=== PATIENT | female | born 1960 | race Caucasian/White ===

== ENCOUNTER → 2017-06-05 | Outpatient (CLI) | payer OTHER ==
--- NOTE | 2017-06-06 13:28 | PE ---
EXAMINATION TYPE: PET CT fusion skull to thigh DATE OF EXAM: 06/05/2017 COMPARISON: Chest x-ray 10/14/2016 Prior PET/CT: None at this location HISTORY: Solitary pulmonary nodule TECHNIQUE: Following the intravenous administration of 14.79 mCi of F-18 FDG, whole body images are performed from the skull base to the midthigh. Images are reviewed on the computer in the coronal, a xial, and sagittal planes. Reconstructed rotating images are created on independent workstation and reviewed on the computer. A localization and attenuation correction CT is performed in conjunction with the PET scan. DLP: 473.70 mGycm SCAN: Initial Blood glucose: 97 mg/dL Average Mediastinum SUV: 1.58 Average Liver SUV: 2.16 FINDINGS: NECK: No abnormal uptake THORAX: There is a focus of radiotracer accumulation at the right apex with an SUV of 6.2 compatible with a neoplastic process. There is a focus of radiotracer accumulation in the superior right mediast inum with an SUV value of 4.4 suspicious for a right peribronchial metastatic lymph node. ABDOMEN: No abnormal uptake PELVIS: No abnormal uptake. Punctate area of radiotracer in the right hemipelvis is felt to be relate d to renal excretion and ureter. OSSEOUS STRUCTURES: No abnormal uptake. LOCALIZATION CT: Apical mass on mediastinal windows is estimated to measure 2.9 x 3.8 cm. Series 3 im age 56. Shotty lymphadenopathy is within the superior mediastinum. There is an enlarged lymph node pr etracheal space corresponding to the area of abnormal uptake on PET scan measuring 1.2 cm in transver se dimension. The ascending thoracic aorta at the level of main pulmonary artery is 3.6 cm. The main pulmonary artery the bifurcation is 3.1 cm. There is thickening of the left adrenal gland 1.5 cm. Thi s has an SUV value 1.56 which is nonspecific. COMPARISON: Finding corresponds to the finding on the chest x-ray of 10/14/2016. IMPRESSION: 1. Focal uptake within the right apex compatible with neoplasm. 2. Focal uptake within an enlarged mediastinal lymph node suspicious for metastatic disease. 3. Intermediate uptake within a prominent left adrenal gland. Metastasis is not excluded. Other etiol ogies remain within the differential.
== END | disposition home or self-care (01) ==
LOC: RADPETMAIN 09:49
PROVIDERS: ATTEND Internal Medicine Critical Care Medicine
DX: R59.0 Localized enlarged lymph nodes (principal)
CPT/HCPCS: 78815; A9552

== ENCOUNTER 2017-06-14 09:51 | Day surgery (SDC) | payer OTHER ==
[2017-06-11 10:12] VITALS: BMI 33.6
[~2017-06-14 09:51] MED LIST: ALBUTEROL NEB (CONC) 2.5 MG/0.5 ML INHALATION ONE; LACTATED RINGERS 1,000 ML IV ONE; LIDOCAINE 2% (PF) 20 MG/ML 2 ML AMP INHALATION ONE; Pre Op ABX Message 1 EACH MISC MISCELLANE ONE
[2017-06-14 10:28] VITALS: RESP 18; TEMP 97.7
[2017-06-14] MEDS ORDERED: LIDOCAINE 1% 20 ML VIAL (10MG/ML) FOR IV START INTRADERMA ONE (10:30)
[2017-06-14] MEDS ORDERED: HYDROCORTISONE SUCCINATE 100 MG/2 ML VIAL IV ONE (10:49)
[2017-06-14 10:51] LABS: Glucose,Whole Blood 106 mg/dL (75-99)
[2017-06-14] MEDS ORDERED: PROPOFOL 10 MG/ML 20 ML VIAL IV ONE (12:31)
[2017-06-14] MEDS ORDERED: LIDOCAINE 1% INJ 10MG/ML (20 ML MDV) ONE (12:31)
[2017-06-14] MEDS ORDERED: MIDAZOLAM 2 MG/2 ML VIAL ONE (12:31)
[2017-06-14] MEDS ORDERED: GLYCOPYRROLATE 0.2 MG/ML 2 ML VIAL ONE (12:31)
--- NOTE | 2017-06-14 13:06 | P.PCN ---
Date of Procedure: 06/14/17 Preoperative Diagnosis: rigjt upper lone mass, right paratracheal adenopathy Postoperative Diagnosis: same Procedure(s) Performed: Flexible bronchoscopy, transbronchial needle aspirate of a right paratracheal lymph node, station 4R Anesthesia: MAC Surgeon: Alley Baldwin Estimated Blood Loss (ml): 0 Pathology: other Condition: stable Disposition: same day Operative Findings: This is a flexible bronchoscopy that was done under conscious sedation in the bronchoscopy suite. The procedure was done under conscious sedation. After achieving adequate sedation, the flexible bronchoscope was inserted to the right nostril was advanced upper airway. Examination of the posterior oropharynx, larynx, epiglottis, arytenoids and the vocal cords were within normal limits and there was no abnormalities noted. A total of 2 mL of 1% lidocaine was applied to the vocal cords and following that the bronchoscope was advanced into the upper trachea and examination of the tracheal bronchial tree was done. The airways were visualized included the trachea, bilateral mainstem bronchi, right upper lobe bronchus, bronchus intermedius, right middle lobe bronchus, right lower lobe bronchus, left upper lobe bronchus and left lower lobe bronchus. All of these airways were patent and within normal limits. No endobronchial lesions or abnormalities noted. Bronchoscope was moved to the distal trachea and transbronchial needle aspirate of the right paratracheal lymph node was done, station 4 hours. I used a 19-gauge cytology needle and a 21-gauge histology needle. The adequacy of the samples will confirmed by pathology the bedside. A total of 6 passes were done. Addendum of the procedure, there was no bleeding and the patient tolerated the procedure well without any major difficulties. The bronchoscope was removed and the patient was transferred recovery in stable condition.
[2017-06-14 13:34] VITALS: BP 97/59; PULSE 87
== END 2017-06-14 13:57 | disposition home or self-care (01) ==
LOC: ORWHC2ENDO 09:51
PROVIDERS: ATTEND Internal Medicine Critical Care Medicine
DX: C34.91 Malignant neoplasm of unspecified part of right bronchus or lung (principal); J44.9 Chronic obstructive pulmonary disease, unspecified; K21.9 Gastro-esophageal reflux disease without esophagitis; E03.9 Hypothyroidism, unspecified; Z87.891 Personal history of nicotine dependence; Z79.51 Long term (current) use of inhaled steroids; Z79.899 Other long term (current) drug therapy
CPT/HCPCS: 94640; 88305; 88173; 88342; 88341; 31629; J2250; J1720; J2001 ×2; J2704

== ENCOUNTER → 2017-06-25 | Outpatient (CLI) | payer OTHER ==
--- NOTE | 2017-06-25 08:07 | MR ---
EXAMINATION TYPE: MR brain wo/w con DATE OF EXAM: 06/25/2017 COMPARISON: NONE HISTORY: Lung CA newly diagnosed, initial staging study TECHNIQUE: Multiplanar, multisequence images of the brain and brainstem is performed without and with IV contras t, utilizing 9.5 mL intravenous Gadavist . FINDINGS: Diffusion weighted images demonstrate no evidence of a recent infarct or other diffusion ab normality. There is no worrisome extra-axial fluid collection. The ventricular system and cisternal spaces are normal in size and appearance. The brain volume is age appropriate. There are few scatte red foci of T2 hyperintensity seen throughout the white matter bilaterally. Approximately 15 scattere d lesions are seen. There is additional right frontal cortical C-shaped T2 hyperintense area axial im age 35 noted. Midline structures demonstrate normal morphology. The craniocervical junction appears within normal limits. Post contrast images demonstrate no abnormal enhancement. The dural venous sinuses appear pa tent. The visualized sinuses are clear and the globes are intact. IMPRESSION: No suspicious enhancing intraparenchymal mass is identified to suggest metastatic disease to the brain. Mild nonspecific white matter changes are most likely on basis of product of chronic s mall vessel ischemic change in patient of this age.
== END ==
LOC: RADMRIMAIN 07:02
PROVIDERS: ATTEND Radiology Radiation Oncology
DX: C34.11 Malignant neoplasm of upper lobe, right bronchus or lung (principal)
CPT/HCPCS: 70553; A9581

== ENCOUNTER 2017-07-06 06:33 | Day surgery (SDC) | payer OTHER ==
[2017-07-05 10:15] VITALS: BMI 33.3
[~2017-07-06 06:33] MED LIST changes: -ALBUTEROL NEB (CONC) 2.5 MG/0.5 ML INHALATION ONE; +DEXAMETHASONE SOD PHOSPHATE 10 MG/ML 1 ML VIAL IV ONE; -LACTATED RINGERS 1,000 ML IV ONE; +LACTATED RINGERS 1,000 ML IV SCH; -LIDOCAINE 2% (PF) 20 MG/ML 2 ML AMP INHALATION ONE; +MIDAZOLAM 2 MG/2 ML VIAL IV PRN; +ONDANSETRON 4 MG/2 ML VIAL IVP ONE; +SCOPOLAMINE 1.5MG/72HR PATCH TRANSDERM ONE
[2017-07-06] MEDS ORDERED: LIDOCAINE 1% 20 ML VIAL (10MG/ML) FOR IV START INTRADERMA ONE (07:26)
[2017-07-06] MEDS ORDERED: SODIUM CHLORIDE 0.9% 50 ML with ceFAZolin 2,000 MG IV ONE ×2 (08:06)
[2017-07-06] MEDS ORDERED: MIDAZOLAM 2 MG/2 ML VIAL ONE (08:06)
[2017-07-06] MEDS ORDERED: fentaNYL (PF) 50 MCG/ML 2 ML AMP ONE (08:06)
[2017-07-06] MEDS ORDERED: LIDOCAINE 1% INJ 10MG/ML (20 ML MDV) ONE (08:06)
[2017-07-06] MEDS ORDERED: ceFAZolin 1,000 MG VIAL ONE (08:06)
[2017-07-06] MEDS ORDERED: KETAMINE 10 MG/ML 20 ML VIAL ONE (08:06)
[2017-07-06] MEDS ORDERED: PROPOFOL 10 MG/ML 20 ML VIAL IV ONE (08:06)
[2017-07-06] MEDS ORDERED: LIDOCAINE (PF) 10 MG/ML 2 ML VIAL SQ ONE (08:24)
[2017-07-06] MEDS ORDERED: LIDOCAINE 1% INJ 10MG/ML (20 ML MDV) SQ ONE (08:24)
[2017-07-06] MEDS ORDERED: HEPARIN SODIUM,PORCINE 100 UNIT/ML 5 ML VIAL IV ONE (08:26)
--- NOTE | 2017-07-06 09:19 | FL ---
EXAMINATION TYPE: FL guidance operating room DATE OF EXAM: 07/06/2017 HISTORY: Flouroscopy time 18 seconds of fluoroscopy provided. IMPRESSION: 1. Fluoroscopy time.
[2017-07-06 09:24] VITALS: TEMP 96.8
[2017-07-06] MEDS: fentaNYL (PF) 50 MCG/ML 2 ML AMP IV PRN ×2 (09:31→09:45)
--- NOTE | 2017-07-06 09:31 | XR ---
EXAMINATION TYPE: XR chest 1V portable DATE OF EXAM: 07/06/2017 COMPARISON: 10/14/2016 HISTORY: Port placement TECHNIQUE: Single frontal view of the chest is obtained. FINDINGS: There is a spiculated mass within the right upper lobe measuring 3.3 cm increased in size from the previous exam. Left-sided port is seen with the tip overlying the SVC and no sizable pneumot horax. No consolidation or pleural effusion. Heart size stable and within normal limits. IMPRESSION: 1. Mediport is seen with the tip overlying the SVC and no sizable pneumothorax. 2. Right apical lung mass measures 3.3 cm and is increased in size from previous exam.
--- NOTE | 2017-07-06 09:34 | P.OP ---
Date of Procedure: 07/06/17 Preoperative Diagnosis: Lung cancer Postoperative Diagnosis: Same Procedure(s) Performed: Insertion of left IJ Port-A-Cath under fluoroscopy with ultrasound guidance Anesthesia: MAC Surgeon: Curry Chung Condition: stable Disposition: PACU Indications for Procedure: This 56-year-old female who has metastatic lung cancer which she requires chemotherapy for. Risks benefits and alternatives to Mediport placement including risks of bleeding infection damage surrounding tissue need further operation pneumothorax and need for chest tube were all discussed with patient stated she understood agreed and consented for consent was obtained Description of Procedure: Patient was brought Into the operative suite remained in the supine position underwent sedation per department of anesthesia timeout was performed correct patient correct procedure correct site was verified she is prepped and draped in the usual sterile fashion local anesthetic was used to anesthetize the skin and subcuticular tissues over the left anterior chest and the cannulating needle was used to cannulate the left subclavian vein. The wire was then unable to be passed completely through the needle as a needle was made of a material that was easily bent underneath the clavicle. No other needle is available. Ultrasound was then obtained and used to visualize the internal jugular vein with the patient in Trendelenburg. The cannulating needle was then used to cannulate the left internal jugular vein. The wire was easily passed and under fluoroscopy noted to be in the SVC. The needle was removed leaving the wire in place. A 15 blade scalpel was then used to make a 4 cm incision in the left anterior chest this was carried down to the prepectoral fascia. The catheter was tunneled between this incision and the neck incision which was made at the insertion of the wire. The sheath and dilator were then placed over the wire under direct fluoroscopic guidance the wire and dilator were removed leaving the sheath in place the catheter was placed through the sheath under fluoroscopic guidance until noted in the SVC atrial junction. The sheath was then removed leaving the catheter in place. The port was then attached to the catheter in the pocket that was previously formed and sutured in place using 2-0 Prolene sutures. The port was flushed with ease and hep- locked. Final image was taken the skin was closed with 30 subdermal sutures followed by 4-0 running subcuticular suture sterile dressing was applied patient tolerated procedure well no apparent complications chest x-ray ordered for packing Plan - Discharge Summary New Discharge Prescriptions: New HYDROcodone/APAP 5-325MG [[place] 5-325] 1 tab PO Q6HR PRN #15 tab PRN Reason: Pain No Action Cholecalciferol [Vitamin D3] 2,000 unit PO DAILY Levothyroxine Sodium [Levoxyl] 150 mcg PO QAM Furosemide [Lasix] 20 mg PO DAILY Budesonide/Formoterol Fumarate [Symbicort 160-4.5 Mcg Inhaler] 2 puff INHALATION BID Albuterol Sulfate [Proair Hfa] 1 - 2 puff INHALATION Q6HR PRN PRN Reason: COPD Umeclidinium Gustavus [Incruse Ellipta] 62.5 mcg INHALATION QAM Theophylline Anhydrous [Theophylline] 400 mg PO BID Omeprazole 20 mg PO TID-W/MEALS I-Hlncd-Ywmjyzrk 600 mg PO DAILY Ipratropium-Albuterol Nebulize [Duoneb 0.5 mg-3 mg/3 ml Soln] 3 ml INHALATION DAILY PRN PRN Reason: Shortness Of Breath Elderberry Fruit and Flower [Black Elderberry 575 mg Cap] 1 each PO DAILY Cyanocobalamin (Vitamin B-12) [Vitamin B-12] 3,000 mcg PO DAILY Cefuroxime [Ceftin] 500 mg PO BID Black Cohosh 40 mg PO DAILY Nystatin 100,000 unit PO BID Discharge Medication List Albuterol Sulfate [Proair Hfa] 1 - 2 puff INHALATION Q6HR PRN 06/11/17 [History] Budesonide/Formoterol Fumarate [Symbicort 160-4.5 Mcg Inhaler] 2 puff INHALATION BID 06/11/17 [History] Cholecalciferol [Vitamin D3] 2,000 unit PO DAILY 06/11/17 [History] Cyanocobalamin (Vitamin B-12) [Vitamin B-12] 3,000 mcg PO DAILY 06/11/17 [ History] Elderberry Fruit and Flower [Black Elderberry 575 mg Cap] 1 each PO DAILY [History] Furosemide [Lasix] 20 mg PO DAILY 06/11/17 [History] Ipratropium-Albuterol Nebulize [Duoneb 0.5 mg-3 mg/3 ml Soln] 3 ml INHALATION DAILY PRN 06/11/17 [History] Levothyroxine Sodium [Levoxyl] 150 mcg PO QAM 06/11/17 [History] M-Tzgws-Eyvfqnxh 600 mg PO DAILY 06/11/17 [History] Omeprazole 20 mg PO TID-W/MEALS 06/11/17 [History] Theophylline Anhydrous [Theophylline] 400 mg PO BID 06/11/17 [History] Umeclidinium Gustavus [Incruse Ellipta] 62.5 mcg INHALATION QAM 06/11/17 [History ] Black Cohosh 40 mg PO DAILY 07/05/17 [History] Cefuroxime [Ceftin] 500 mg PO BID 07/05/17 [History] Nystatin 100,000 unit PO BID 07/05/17 [History] HYDROcodone/APAP 5-325MG [[place] 5-325] 1 tab PO Q6HR PRN #15 tab 07/06/17 [Rx] Follow up Appointment(s)/Referral(s): Curry Chung DO [Doctor of Osteopathic Medicine] - 1 Week Activity/Diet/Wound Care/Special Instructions: Dressing can come off tomorrow, shower tomorrow, leave steri strips on Discharge Disposition: HOME SELF-CARE
[2017-07-06 09:47] VITALS: RESP 16
[2017-07-06] MEDS ORDERED: HYDROcodone/APAP 5-325MG 1 EACH TAB PO ONE (10:18)
[2017-07-06 11:09] VITALS: BP 109/73; PULSE 80
== END 2017-07-06 11:35 | disposition home or self-care (01) ==
LOC: OR 06:33
PROVIDERS: ATTEND Student in an Organized Health Care Education/Training Program
DX: C34.90 Malignant neoplasm of unspecified part of unspecified bronchus or lung (principal); J44.9 Chronic obstructive pulmonary disease, unspecified; E07.9 Disorder of thyroid, unspecified; K21.9 Gastro-esophageal reflux disease without esophagitis; Z79.51 Long term (current) use of inhaled steroids; Z79.899 Other long term (current) drug therapy; Z87.891 Personal history of nicotine dependence
CPT/HCPCS: 36561; 71045; C1788; J2250; J1642; J1100; J2405; J0690 ×2; J2001; J3010; J2704

== ENCOUNTER → 2017-08-28 | Outpatient (CLI) | payer OTHER ==
--- NOTE | 2017-08-30 08:46 | PE ---
EXAMINATION TYPE: PET CT fusion skull to thigh DATE OF EXAM: 08/28/2017 COMPARISON: 06/05/2017 HISTORY: Right apical non-small cell stage III lung cancer. Progress exam. Subsequent treatment strat egy. Current chemotherapy and radiation. TECHNIQUE: Following the intravenous administration of 13.84 mCi of F-18 FDG, whole body images are performed from the skull base to the midthigh. Images are reviewed on the computer in the coronal, a xial, and sagittal planes. Reconstructed rotating images are created on independent workstation and reviewed on the computer. A localization and attenuation correction CT is performed in conjunction with the PET scan. SCAN: Second at this institution FINDINGS: Mediastinal background: 2.31. Abdominal background: 2.88. SKULL BASE AND NECK: No suspicious hypermetabolic uptake. CHEST, MEDIASTINUM, AND HILAR REGION: The right apical pulmonary nodule measuring 2.1 x 2.7 cm is aga in hypermetabolic with a maximum SUV of 4.18. This is decreased in comparison to the prior of 6.2. Th is is also decreased in size as the previous measurements are 2.7 x 2.9 cm on the PET/CT dated 06/06/19 18. There is associated pleural thickening posterior medially and linear extension to the pleural claribel faces circumferentially. Findings are superimposed upon moderate centrilobular pulmonary emphysema. There is a right paratracheal lymph node seen on series 3 image 78 that measures 1.0 cm in short axis , upper limits of normal, and demonstrates a maximum SUV of 2.53, just above mediastinal background. This appears to have decreased in hypermetabolic uptake in comparison to the prior (maximum SUV of 4. 4). ABDOMEN AND PELVIS: The left adrenal gland is diffusely thickened but maintains an adreniform shape. There is no hypermetabolic activity with a maximum SUV of 2.2, below abdominal background. This is fa vored to represent benign adrenal gland hyperplasia rather than metastasis and is similar in morpholo gy to the prior exam. OSSEOUS STRUCTURES: No suspicious hypermetabolic uptake. OTHER CT: There is a solitary 6 mm left hepatic lobe cyst. The liver is diffusely hypoattenuated comp atible with mild hepatic steatosis. Left-sided Mediport is seen terminating in the cavoatrial junctio n. Ascending thoracic aorta and main pulmonary artery are nonenlarged. Glenohumeral arthropathy is se en, right greater than left. Mild to moderate multilevel degenerative changes of the spine are presen t. No suspicious osseous lesion is seen. Colonic diverticulosis without evidence of diverticulitis is noted. There is diastases recti. 2 small to accurately characterize bilateral renal lesions are seen . Probable left renal sinus cysts are present. No gross evidence of adenopathy in the abdomen or pelv is. Very small hiatal hernia is noted. Right adrenal gland is unremarkable. Left as described above. Unenhanced spleen and pancreas are unremarkable in morphology. No additional pulmonary masses are marychuy picious nodules are seen on today's examination. IMPRESSION: 1. Response to treatment. Decrease in radiotracer uptake of the primary right apical pulmonary nodule of greater than 25%. Additionally there is decrease in size of the right apical mass and decrease in uptake of the right paratracheal mediastinal presumably solitary metastatic lymph node. 2. No new additional evidence of infradiaphragmatic metastasis or suspicious osseous lesions. 3. Stable morphology of the nonhypermetabolic left adrenal gland favoring benign adrenal gland hyperp lasia. Continued surveillance is recommended.
== END | disposition home or self-care (01) ==
LOC: RADPETMAIN 09:41
PROVIDERS: ATTEND Internal Medicine Hematology & Oncology
DX: C34.11 Malignant neoplasm of upper lobe, right bronchus or lung (principal); R91.1 Solitary pulmonary nodule; C77.1 Secondary and unspecified malignant neoplasm of intrathoracic lymph nodes
CPT/HCPCS: 78815; A9552

== ENCOUNTER → 2017-09-13 | Outpatient (CLI) | payer OTHER ==
[2017-09-13 13:48] LABS: Appearance,Urine Clear (Clear); Bilirubin,Urine Negative (Negative); Blood,Urine Trace (Negative); Color,Urine Yellow; Glucose,Urine (UA) Negative (Negative); Ketones,Urine Negative (Negative); Leukocyte Esterase,Urine Negative (Negative); Mucus,Urine Moderate /hpf; Nitrite,Urine Negative (Negative); PH, Urine 6.5 (5.0-8.0); Protein,Urine Trace (Negative); RBC,Urine 14 /hpf (0-5); Specific Gravity,Urine 1.024 (1.001-1.035); Squamous Epithelial Cell,Urine 1 /hpf (0-4); Urobilinogen,Urine <2.0 mg/dL (<2.0); WBC,Urine 1 /hpf (0-5)
[2017-09-13 14:32] LABS: Anion Gap 9 mmol/L; Blood Urea Nitrogen 12 mg/dL (7-17); Carbon Dioxide 29 mmol/L (22-30); Chloride 106 mmol/L (98-107); Potassium 5.4 mmol/L (3.5-5.1); Sodium 144 mmol/L (137-145)
[2017-09-13 14:38] LABS: Anisocytosis Slight; Basophils % (A) 0 %; Eosinophils # (A) 0.1 k/uL (0-0.7); Eosinophils % (A) 2 %; HCT 36.2 % (34.0-46.0); Lymphocytes # (A) 0.5 k/uL (1.0-4.8); Lymphocytes % (A) 13 %; MCHC 33.1 g/dL (31.0-37.0); MCV 93.6 fL (80.0-100.0); Mean Platelet Volume 6.8; Monocytes # (A) 0.3 k/uL (0-1.0); Monocytes % (A) 8 %; Neutrophils # (A) 2.7 k/uL (1.3-7.7); Neutrophils % (A) 72 %; Platelet Count 304 k/uL (150-450); RBC 3.86 m/uL (3.80-5.40); RDW 17.9 % (11.5-15.5); WBC 3.7 k/uL (3.8-10.6)
== END | disposition home or self-care (01) ==
LOC: LABPAT 12:58
PROVIDERS: ATTEND Thoracic Surgery (Cardiothoracic Vascular Surgery)
DX: Z01.812 Encounter for preprocedural laboratory examination (principal); C34.12 Malignant neoplasm of upper lobe, left bronchus or lung
CPT/HCPCS: 36415; 80051; 81001; 82565; 84520; 85025

== ENCOUNTER 2017-09-16 05:51 | Inpatient (IN) | payer OTHER ==
[~2017-09-16 05:51] MED LIST changes: -LACTATED RINGERS 1,000 ML IV SCH; -Pre Op ABX Message 1 EACH MISC MISCELLANE ONE; -SCOPOLAMINE 1.5MG/72HR PATCH TRANSDERM ONE
[2017-09-16] MEDS ORDERED: LIDOCAINE 1% 20 ML VIAL (10MG/ML) FOR IV START INTRADERMA ONE ×2 (06:52)
[2017-09-16] MEDS: LACTATED RINGERS 1,000 ML IV SCH (06:52)
[2017-09-16 06:55] LABS: Potassium 3.8 mmol/L (3.5-5.1)
[2017-09-16] MEDS ORDERED: GLYCOPYRROLATE 0.2 MG/ML 2 ML VIAL ONE (07:43)
[2017-09-16] MEDS ORDERED: SUCCINYLCHOLINE CHLORIDE 100 MG/5 ML SYR IV ONE (07:43)
[2017-09-16] MEDS ORDERED: HYDROmorphone (PF) 1 MG/ML ONE (07:43)
[2017-09-16] MEDS ORDERED: MIDAZOLAM 2 MG/2 ML VIAL ONE (07:43)
[2017-09-16] MEDS ORDERED: LIDOCAINE 1% INJ 10MG/ML (20 ML MDV) ONE (07:43)
[2017-09-16] MEDS ORDERED: fentaNYL (PF) 50 MCG/ML 2 ML AMP ONE (07:43)
[2017-09-16] MEDS ORDERED: NEOSTIGMINE 1 MG/ML 10 ML VIAL ONE (07:43)
[2017-09-16] MEDS ORDERED: ROCURONIUM BROMIDE 10 MG/ML 10 ML VIAL IV ONE (07:43)
[2017-09-16] MEDS ORDERED: PROPOFOL 10 MG/ML 20 ML VIAL IV ONE (07:43)
[2017-09-16] MEDS: ceFAZolin IN SWFI 2 GM/20 ML SYRINGE IVP ONE ×2 (08:08→08:27)
[2017-09-16] MEDS ORDERED: BUPIVACAINE (PF) 0.5% 30 ML VIAL SQ ONE ×2 (08:27)
[2017-09-16] MEDS ORDERED: SODIUM CHLORIDE 0.9% 500 ML IV ONE (09:02)
[2017-09-16] MEDS ORDERED: LACTATED RINGERS 1,000 ML IV ONE (10:47)
[2017-09-16] MEDS ORDERED: IPRATROPIUM-ALBUTEROL 3 ML NEB IH PRN (11:05)
[2017-09-16] MEDS ORDERED: ONDANSETRON 4 MG/2 ML VIAL IVP PRN (11:05)
[2017-09-16] MEDS ORDERED: DEXTROSE 5%-0.45% NACL 1,000 ML IV SCH (11:05)
[2017-09-16] MEDS ORDERED: ACETAMINOPHEN TAB 325 MG TAB PO PRN ×2 (11:05)
--- NOTE | 2017-09-16 11:10 | P.OP ---
Date of Procedure: 09/16/17 Preoperative Diagnosis: Primary pulmonary neoplasm right upper lobe Postoperative Diagnosis: Same Procedure(s) Performed: Robotic-assisted thoracoscopic right upper lobectomy with mediastinal lymph node dissection Anesthesia: KEELY Surgeon: Romeo Eid Trimming Press Operator #1: Fabien Estevez Estimated Blood Loss (ml): 100 IV fluids (ml): 1,500 Urine output (ml): 500 Pathology: other (Right upper lobe for permanent section, lymph nodes from stations R4, level VII, RR 10, R 11) Condition: stable Disposition: PACU Indications for Procedure: 56-year-old female presented with enlarging mass in the right upper lobe near the apex. Initial PET scan was suggestive for right paratracheal adenopathy. EBUS confirmed the presence of stage IIIa disease. Patient underwent induction chemoradiation. She had a good response with loss of uptake in the mediastinal nodes and shrinkage of the primary tumor. She was recommended to undergo right upper lobectomy as part of try modality therapy. She went to [facility] for a second opinion and came back and decided to have the surgery here in [place]. Operative Findings: Pleural space was relatively free of adhesions. The tumor was adherent to the parietal pleura in the apex and there were some adhesions inferior to this to the mediastinal pleura. The fissures were nearly complete. There was some anthracotic adenopathy in the hilum. There were no significant paraesophageal nodes noted. No were mildly enlarged but otherwise relatively normal-appearing subcarinal nodes which were resected. Lymph nodes in the R4 and level X region were fairly adherent from previous radiation and were completely resected. Description of Procedure: The patient was brought to the operating room, placed supine on the operating table, anesthetized and intubated with a double-lumen endotracheal tube. Tube was positioned with fiberoptic bronchoscopy. No endobronchial lesions were noted. Tube was secured and the patient turned in left lateral decubitus position. She was appropriately positioned for robotic lobectomy. The right chest was sterilely prepped and draped. Initial incision was made in the anterior axillary line in the eighth interspace. An 8 port was placed here and we confirm placement in the pleural space. Single lung ventilation had been initiated shortly after draping. Patient tolerated single lung ventilation throughout the case. Once we were certain we were in the pleural space, CO2 insufflation was begun. 212 mm robotic ports were placed anterior and posterior to the initial port under thoracoscopic guidance. A second 8 mm port was placed in the fifth interspace posteriorly. The 15 mm working port was placed between the 2 most anterior ports just above the level of the diaphragm. The robot was docked. We began by taking down the adhesions at the apex robotically. These were fairly dense and vascular and it took some time but proceeded uneventfully. We then took down the remaining adhesions to the mediastinal pleura and then directed our attention to the inferior pulmonary ligament. This was taken down with bipolar cautery. Dissection was carried posteriorly and the paraesophageal lymph nodes were explored. There were some enlarged anthracotic subcarinal lymph nodes and these were resected. Dissection was then carried anteriorly onto the bronchus intermedius and up to the takeoff of the upper lobe bronchus. Lymph nodes in this bifurcation between the upper lobe bronchus and bronchus intermedius were resected. This gave us good visualization of the posterior segmental branch of the pulmonary artery leading to the posterior segment of the upper lobe. This was encircled and ligated and divided with a vascular robotic stapler. Further dissection of the lymph nodes was performed and some level XI lymph nodes were sent there was fairly dense adhesions between the pulmonary artery and the bronchus and we were not able to completely encircle the bronchus at this time. Attention was now directed anteriorly. Venous branches draining the middle and upper lobes were identified and we encircled the branches draining the upper lobe and ligated and divided them with a single firing of a robotic vascular stapler. Dissection was now carried onto the pulmonary artery and the truncus anteriormost this was identified. Adhesions in this region were a little bit Dadson did very careful and tedious dissection to completely safely encircled with truncus anterior doses. Once we had done this it was ligated and divided with a firing of a robotic vascular stapler. Remaining lymph nodes in the hilum were spent dissected en bloc with the specimen. We encircled the upper lobe bronchus and ligated and divided it with a single firing of a robotic thick stapler. The right upper lobe was now completely freed. Dissection was begun under the azygos vein and the paratracheal and level X hilar lymph nodes were dissected out and sent for permanent section. The lobectomy specimen was now placed in a bag and brought out through the working port site which was enlarged only slightly. Was sent for permanent section. All the lymph nodes were sent for permanent section. Chest was irrigated with warm water and no bleeding was noted. Total blood loss for the case was less than 100 mL. With some sterile water and the chest reinflated the lung and checked for air leaks. No significant air leaks were noted. Water was sucked out and a 28-Swedish chest tube was placed posterior apically through the most anterior incision. This was secured with an 0 Ethibond suture. Continue ventilation of the lung and close the incisions with layers of Vicryl suture. Rib blocks were performed at levels 5 through 10 with 5 mL of half percent Marcaine per level. Patient was turned supine and extubated and transferred to recovery in stable condition with her chest tube connected to suction and dry sterile dressings placed. Patient remained hemodynamically stable throughout there were no issues with her anesthetic management
[2017-09-16] MEDS: HYDROmorphone 0.5 MG/0.5 ML SYRINGE IVP PRN ×4 (11:13→11:36)
[2017-09-16] MEDS: KETOROLAC 30 MG/ML 1 ML VIAL IVP SCH ×2 (11:28→17:39)
[2017-09-16] MEDS ORDERED: SODIUM CHLORIDE 0.9% 1,000 ML IV ONE (11:42)
--- NOTE | 2017-09-16 11:43 | XR ---
EXAMINATION TYPE: XR chest 1V portable DATE OF EXAM: 09/16/2017 COMPARISON: 09/16/2018 HISTORY: Status post right lobectomy. TECHNIQUE: Single frontal view of the chest is obtained. FINDINGS: Right apical pleural thickening may be reactive. No pneumothorax is identified. Right thor acostomy tube has its distal aspect medially oriented along the right lung apex. Left-sided Mediport is in place. Right hemithorax volume loss is noted. Overall the lungs are clear without pleural effus ion or focal consolidation. Cardia mediastinal silhouette is within normal limits. Small amount of s ubcutaneous emphysema seen along the right lateral chest wall. IMPRESSION: Postsurgical changes of a right upper lobectomy with right apical pleural thickening, li lisa reactive but no residual pneumothorax identified.
[2017-09-16] MEDS: diphenhydrAMINE 50 MG/ML 1 ML VIAL IVP ONE ×2 (11:49→12:20)
[2017-09-16] MEDS: IPRATROPIUM-ALBUTEROL 3 ML NEB IH SCH ×3 (13:26→20:53)
[2017-09-16] MEDS: traMADol 50 MG TAB PO SCH ×3 (14:16→21:13)
--- NOTE | 2017-09-16 14:27 | P.CNPUL ---
History of Present Illness Consult date: 09/16/17 Reason for consult: lung mass, abnormal CXR/CT Chief complaint: Lung cancer History of present illness: Consult dated 09/16/2017 This is a 56-year-old female who saw Dr. Baldwin. The patient apparently had a mass in the right upper lobe. It was apparently consistent with lung cancer. The patient had a enlarging mass in the right upper lobe near the apex. PET scan was suggestive for right paratracheal adenopathy. Endobronchial ultrasound confirmed the presence of stage IIIa disease. The patient underwent induction chemoradiation. She had a good response with possible uptake in the mediastinal nodes and sure he comes to the primary tumor. She was recommended to undergo right upper lobectomy as part of multimodality therapy. She apparently initially went to [facility], but then decided to come back to [place] to have her surgery here. She ended up having a robotic- assisted thoracoscopic right upper lobectomy with mediastinal lymph node dissection. She had a transbronchial needle aspiration done by my partner on June 14 of this year. This is how the diagnosis was made. The patient has a history of previous shoulder surgery hysterectomy tonsillectomy and . Medically, she has a history of oropharyngeal candidiasis lower extremity edema hypothyroidism and COPD. Review of Systems A 12 point review of system is positive for only pain at the surgical site. She denies other complaints including shortness breath difficulty breathing coughing wheezing or phlegm production. Past Medical History Past Medical History: Asthma, Cancer, COPD, GERD/Reflux, Thyroid Disorder Additional Past Medical History / Comment(s): RECENT DX WITH RIGHT LUNG CANCER History of Any Multi-Drug Resistant Organisms: None Reported Past Surgical History: Adenoidectomy, Section, Hysterectomy, Orthopedic Surgery, Tonsillectomy Additional Past Surgical History / Comment(s): RT SHOULDER SX. D & C Past Anesthesia/Blood Transfusion Reactions: No Reported Reaction Past Psychological History: No Psychological Hx Reported Smoking Status: Former smoker Past Alcohol Use History: Rare Additional Past Alcohol Use History / Comment(s): QUIT SMOKING 2014 Past Drug Use History: None Reported - Past Family History Father Family Medical History: Cancer Additional Family Medical History / Comment(s): LUNG Medications and Allergies Home Medications Medication Instructions Recorded Confirmed Type Albuterol Sulfate [Proair Hfa] 1 - 2 puff INHALATION RT-Q6H PRN 06/11/17 History Budesonide/Formoterol Fumarate 2 puff INHALATION RT-BID 06/11/17 09/16/17 History [Symbicort 160-4.5 Mcg Inhaler] Cholecalciferol [Vitamin D3] 4,000 unit PO QAM 06/11/17 09/16/17 History Cyanocobalamin (Vitamin B-12) 2,500 mcg SL DAILY 06/11/17 09/16/17 History [Vitamin B-12] Elderberry Fruit and Flower [Black 1 cap PO DAILY 06/11/17 09/16/17 History Elderberry 575 mg Cap] Furosemide [Lasix] 20 mg PO BID 06/11/17 09/16/17 History Ipratropium-Albuterol Nebulize 3 ml INHALATION RT-BID 06/11/17 09/16/17 History [Duoneb 0.5 mg-3 mg/3 ml Soln] Levothyroxine Sodium [Levoxyl] 150 mcg PO QAM 06/11/17 09/16/17 History G-Ihdbz-Csfarcrb 600 mg PO DAILY 06/11/17 09/16/17 History Omeprazole 20 mg PO TID-W/MEALS 06/11/17 09/16/17 History Theophylline Anhydrous 400 mg PO BID 06/11/17 09/16/17 History [Theophylline] Umeclidinium [place] [Incruse 1 puff INHALATION RT-DAILY 06/11/17 09/16/17 History Ellipta] Black Cohosh 40 mg PO DAILY 07/05/17 09/16/17 History Nystatin 100,000 unit PO BID PRN 07/05/17 09/16/17 History Cbd Oil 1 dose SL DAILY 09/10/17 09/16/17 History Collgen Vitamin D Biotin 1 tab PO DAILY 09/10/17 09/16/17 History Famotidine [Pepcid AC] 10 mg PO HS 09/10/17 09/16/17 History Loratadine 10 mg PO QAM 09/10/17 09/16/17 History Mag Hydrox/Al Hydrox/Simeth 30 ml PO QAM 09/10/17 09/16/17 History [Maalox] traMADol HCL [Ultram] 50 mg PO DAILY PRN 09/10/17 09/16/17 History Allergies Allergy/AdvReac Type Severity Reaction Status Date / Time No Known Allergies Allergy Verified 09/16/17 12:20 Physical Exam Osteopathic Statement: *. No significant issues noted on an osteopathic structural exam other than those noted in the History and Physical/Consult. Vitals: Vital Signs Temp Pulse Pulse Resp BP Pulse Ox 09/16/17 13:32 82 16 118/64 95 09/16/17 13:00 81 18 112/66 98 09/16/17 12:32 83 16 118/61 98 09/16/17 12:17 84 16 119/63 99 09/16/17 12:02 86 16 119/62 98 09/16/17 11:47 100 16 138/66 100 09/16/17 11:45 87 16 138/66 98 09/16/17 11:30 90 16 143/69 100 09/16/17 11:15 94 16 141/73 100 09/16/17 11:05 97.8 F 96 16 137/74 99 09/16/17 06:23 97.2 F L 93 16 110/73 97 Intake and Output 09/15/17 09/16/17 09/16/17 22:59 06:59 14:59 Intake Total 200 2050 Output Total 960 Balance 200 1090 Intake: IV 200 2050 Output: Chest Tube Drainage 210 Chest Tube Right 210 Urine 650 Estimated Blood Loss 100 No acute distress, oriented 3. Nasal O2 in place. HEENT examination is grossly unremarkable. Mucous membranes are moist. No oral lesions. Neck supple. Full range of motion. No adenopathy thyromegaly or neck vein distention. Cardiovascular examination reveals regular rhythm rate. S1-S2 normal. No S3 or S4. No discernible murmur noted. Lungs reveal clear breath sounds. Breath sounds are equal bilaterally. She does not take deep breaths because of pain. No significant adventitious lung sounds are noted including rhonchi wheezes or crackles. Abdomen soft bowel sounds are heard. No masses or tenderness. Extremities are intact. No cyanosis clubbing or edema. Skin is without rash or lesion. Neurologic examination is brief but nonfocal. Results - Laboratory Findings CBC and BMP: 09/16/17 06:30 Abnormal lab findings: Abnormal Labs 09/13/17 13:15 Crossmatch See Detail - Diagnostic Findings Chest x-ray: report reviewed (Labs x-rays a medications are all reviewed.), image reviewed Assessment and Plan Assessment: Assessment Postop day #0, status post robotic-assisted thoracoscopic right upper lobectomy with mediastinal lymph node dissection History of stage IIIa non-small cell lung cancer, diagnosed by transbronchial needle aspiration, status post chemoradiation as neoadjuvant therapy. History of COPD History of hypothyroidism History of lower extremities edema History of oropharyngeal candidiasis Plan: Plan dated 09/16/2017 The patient is doing well. We'll continue to follow. She has a very small air leak. She is in no distress. Minimal pain. I do recommend the use of the incentive spirometer every hour while awake with deep breathing coughing and clearing of secretions. Time with Patient: Greater than 30
[2017-09-16] MEDS: FUROSEMIDE 20 MG TAB PO SCH (17:41)
[2017-09-16] MEDS: ceFAZolin IN SWFI 2 GM/20 ML SYRINGE IVP SCH ×2 (17:41→23:59)
[2017-09-16] MEDS: HEPARIN SODIUM,PORCINE 5,000 UNIT/ML 1 ML VIAL SQ SCH (17:41)
[2017-09-16] MEDS: PANTOPRAZOLE 40 MG TABLET PO SCH (17:41)
[2017-09-16] MEDS: SYMBICORT 160-4.5 MCG INHALER INHALATION SCH (20:54)
[2017-09-17] MEDS: HEPARIN SODIUM,PORCINE 5,000 UNIT/ML 1 ML VIAL SQ SCH ×3 (00:01→15:34)
[2017-09-17] MEDS: KETOROLAC 30 MG/ML 1 ML VIAL IVP SCH ×4 (06:11→18:25)
[2017-09-17] MEDS: LEVOTHYROXINE 75 MCG TAB PO SCH (06:13)
[2017-09-17] MEDS: PANTOPRAZOLE 40 MG TABLET PO SCH ×2 (06:13→15:34)
[2017-09-17 06:36] LABS: Anisocytosis Slight; HCT 30.5 % (34.0-46.0); HGB 10.3 gm/dL (11.4-16.0); MCH 31.5 pg (25.0-35.0); MCHC 33.8 g/dL (31.0-37.0); MCV 93.4 fL (80.0-100.0); Mean Platelet Volume 7.1; Platelet Count 280 k/uL (150-450); RBC 3.26 m/uL (3.80-5.40); RDW 18.1 % (11.5-15.5); WBC 3.8 k/uL (3.8-10.6)
[2017-09-17 07:32] LABS: Eosinophils # (M) 0.04 k/uL (0-0.7); Lymphocytes # (M) 0.19 k/uL (1.0-4.8); Monocytes # (M) 0.49 k/uL (0-1.0); Neutrophils # (M) 3.08 k/uL (1.3-7.7); Neutrophils % (M) 81 %; Nucleated Red Blood Cells 0 /100 WBC (0-0); Total Cells Counted 100
--- NOTE | 2017-09-17 07:42 | P.PN ---
Subjective Progress Note Date: 09/17/17 Principal diagnosis: Primary pulmonary neoplasm right upper lobe. Previous medical history of asthma , COPD, GERD, hypothyroid, previous tobacco dependence and recent diagnosis of adenocarcinoma. POD #1 robotic assisted thoracoscopic right upper lobectomy with mediastinal lymph node dissection Patient's currently sitting up in bed in no acute distress. Does complain of pain at her chest tube site. Has been up ambulating in the room without difficulty. Objective - Vital Signs Vital signs: Vital Signs Temp 97.6 F 09/17/17 03:23 Pulse 99 09/17/17 03:53 Resp 18 09/17/17 03:23 BP 102/59 09/17/17 03:23 Pulse Ox 94 L 09/17/17 03:23 Intake & Output 09/16/17 09/17/17 09/17/17 18:59 06:59 18:59 Intake Total 2490 120 Output Total 1000 1195 Balance 1490 -1075 Weight 98.8 kg Intake: IV 2050 Intake, IV Titration 200 120 Amount Dextrose 5%-0.45% NaCl 1, 200 120 000 ml @ 40 mls/hr IV . Q24H [facility] Rx#:[id number] Oral 240 Output: Chest Tube Drainage 250 170 Chest Tube Right 250 170 Urine 650 1025 Uretheral (Guevara) 175 Estimated Blood Loss 100 Other: Voiding Method Indwelling Catheter Bedside Commode - Constitutional General appearance: Present: cooperative, no acute distress, obese - Respiratory Details: Lungs sounds diminished bilaterally. Respirations even, nonlabored. Currently on 2 L nasal cannula with oxygen saturation 94%. Able to achieve 1000 mL on her incentive spirometry. Right pleural chest tube to continuous wall suction, 90 mL serosanguineous drainage overnight, 400 mL since surgery, no air leak present. - Cardiovascular Details: S1, S2 present. Regular rate and rhythm, sinus rhythm on telemetry. Palpable peripheral pulses bilaterally. No edema present. No calf pain or tenderness noted. SCDs present. - Gastrointestinal Gastrointestinal Comment(s): Abdomen soft, nontender, nondistended. Active bowel sounds 4 quadrants. Tolerating diet. - Genitourinary Genitourinary Comment(s): Guevara was discontinued last night. Patient continues to void clear, yellow urine. - Integumentary Integumentary Comment(s): Skin is warm with evidence perfusion. Right pleural chest tube site covered with dry intact dressing. - Neurologic Neurologic: Present: CNII-XII intact - Musculoskeletal Musculoskeletal: Present: gait normal, strength equal bilaterally - Psychiatric Psychiatric: Present: A&O x's 3, appropriate affect, intact judgment & insight - Allied health notes Allied health notes reviewed: nursing - Labs CBC & Chem 7: 09/17/17 05:41 09/16/17 06:30 Labs: Abnormal Lab Results - Last 24 Hours (Table) 09/13/17 09/17/17 Range/Units 13:15 05:41 RBC 3.26 L (3.80-5.40) m/uL Hgb 10.3 L (11.4-16.0) gm/dL Hct 30.5 L (34.0-46.0) % RDW 18.1 H (11.5-15.5) % Crossmatch See Detail - Imaging and Cardiology Chest x-ray: image reviewed Assessment and Plan (1) COPD (chronic obstructive pulmonary disease) Current Visit: Yes Status: Chronic Code(s): J44.9 - CHRONIC OBSTRUCTIVE PULMONARY DISEASE, UNSPECIFIED SNOMED Code(s): 15520887 (2) Hypothyroidism Current Visit: Yes Status: Chronic Code(s): E03.9 - HYPOTHYROIDISM, UNSPECIFIED SNOMED Code(s): 12979876 (3) Tobacco dependence in remission Current Visit: No Status: Resolved Code(s): F17.201 - NICOTINE DEPENDENCE, UNSPECIFIED, IN REMISSION SNOMED Code(s): 595551544 (4) Adenocarcinoma Current Visit: Yes Status: Chronic Code(s): C80.1 - MALIGNANT (PRIMARY) NEOPLASM, UNSPECIFIED SNOMED Code(s): 102127513 (5) Mass of upper lobe of right lung Current Visit: Yes Status: Chronic Code(s): R91.8 - OTHER NONSPECIFIC ABNORMAL FINDING OF LUNG FIELD SNOMED Code(s): 330009030 (6) Mediastinal lymphadenopathy Current Visit: Yes Status: Chronic Code(s): R59.0 - LOCALIZED ENLARGED LYMPH NODES SNOMED Code(s): 09104424 Plan: 1. Right pleural chest tube placed to waterseal. Will monitor for drainage and air leak. 2. Wean O2 as tolerated. Encourage incentive spirometry use 10 times every hour. 3. Encourage continued smoking cessation. 4. Pain control with ordered medications. 5. Increase activity, ambulate in hallway. 6. Bronchodilators per pulmonology. 7. Monitor daily x-rays. 8. GI/DVT prophylaxis. 9. More recommendations to follow. Time with Patient: Greater than 30
[2017-09-17] MEDS: SYMBICORT 160-4.5 MCG INHALER INHALATION SCH ×2 (07:58→20:46)
[2017-09-17] MEDS: IPRATROPIUM-ALBUTEROL 3 ML NEB IH SCH ×4 (07:58→20:47)
[2017-09-17] MEDS: CHOLECALCIFEROL 1,000 UNIT TAB PO SCH (08:27)
[2017-09-17] MEDS: LORATADINE 10 MG TAB PO SCH (08:28)
[2017-09-17] MEDS: FUROSEMIDE 20 MG TAB PO SCH ×2 (08:28→17:29)
[2017-09-17] MEDS: traMADol 50 MG TAB PO SCH ×4 (08:33→21:21)
[2017-09-17] MEDS: MAG HYDROX/AL HYDROX/SIMETH 30 ML CUP PO SCH (08:34)
--- NOTE | 2017-09-17 09:44 | XR ---
EXAMINATION TYPE: XR chest 1V DATE OF EXAM: 09/17/2017 COMPARISON: Prior chest x-ray 09/16/2017 HISTORY: Status post right upper lobectomy TECHNIQUE: Single frontal view of the chest is obtained. FINDINGS: There are upper right lobectomy changes. Volume loss present in the right hemithorax. Righ t hilum shows a stable and prominent appearance. Right-sided chest tube remains in place. Left-sided jugular central venous catheter is the distal tip overlying superior vena cava. No evident pneumothor ax or pleural effusion. Heart size is stable. IMPRESSION: Satisfactory postoperative chest x-ray.
[2017-09-17] MEDS: THEOPHYLLINE 24 HOUR 400 MG CAP.ER.24H PO SCH (10:12)
[2017-09-17] MEDS: ACETYLCYSTEINE 800 MG/4 ML VIAL PO SCH (10:13)
[2017-09-17] MEDS: CYANOCOBALAMIN 500 MCG TAB PO SCH (12:18)
--- NOTE | 2017-09-17 12:19 | P.PN ---
Subjective Progress Note Date: 09/17/17 Principal diagnosis: Stage IIIa non-small cell lung cancer status post right upper lobectomy with mediastinal lymph node dissection Consult dated 09/16/2017 This is a 56-year-old female who saw Dr. Baldwin. The patient apparently had a mass in the right upper lobe. It was apparently consistent with lung cancer. The patient had a enlarging mass in the right upper lobe near the apex. PET scan was suggestive for right paratracheal adenopathy. Endobronchial ultrasound confirmed the presence of stage IIIa disease. The patient underwent induction chemoradiation. She had a good response with possible uptake in the mediastinal nodes and sure he comes to the primary tumor. She was recommended to undergo right upper lobectomy as part of multimodality therapy. She apparently initially went to [facility], but then decided to come back to [place] to have her surgery here. She ended up having a robotic- assisted thoracoscopic right upper lobectomy with mediastinal lymph node dissection. She had a transbronchial needle aspiration done by my partner on June 14 of this year. This is how the diagnosis was made. The patient has a history of previous shoulder surgery hysterectomy tonsillectomy and . Medically, she has a history of oropharyngeal candidiasis lower extremity edema hypothyroidism and COPD. Patient is seen again today 09/17/2017 in follow-up on the selective care unit. She is currently sitting up in a chair at the bedside. She is awake and alert in no acute distress. She denies any worsening shortness of breath, cough or congestion. She is maintaining good O2 saturations in the 90s on room air. Chest x-ray is stable. Chest tube remains in place. No air leak noted. She is working well with the incentive spirometer. Objective - Vital Signs Vital signs: Vital Signs Temp 98.7 F 09/17/17 11:34 Pulse 92 09/17/17 11:45 Resp 16 09/17/17 11:34 BP 102/61 09/17/17 11:34 Pulse Ox 95 09/17/17 11:34 Intake & Output 09/16/17 09/17/17 09/17/17 18:59 06:59 18:59 Intake Total 2490 120 Output Total 1000 1195 300 Balance 1490 -1075 -300 Weight 98.8 kg Intake: IV 2050 Intake, IV Titration 200 120 Amount Dextrose 5%-0.45% NaCl 1, 200 120 000 ml @ 40 mls/hr IV . Q24H [facility] Rx#:[id number] Oral 240 Output: Chest Tube Drainage 250 170 0 Chest Tube Right 250 170 0 Urine 650 1025 300 Uretheral (Guevara) 175 Estimated Blood Loss 100 Other: Voiding Method Indwelling Catheter Bedside Commode Bedside Commode - Exam GENERAL EXAM: Alert, active, comfortable in no apparent distress. HEAD: Normocephalic. EYES: Normal reaction of pupils, equal size. NOSE: Clear with pink turbinates. THROAT: No erythema or exudates. NECK: No masses, no JVD. CHEST: No chest wall deformity. LUNGS: Equal air entry diminished bilaterally more so on the right. CVS: S1 and S2 normal with no audible murmur, regular rhythm. ABDOMEN: No hepatosplenomegaly, normal bowel sounds, no guarding or rigidity. SPINE: No scoliosis or deformity SKIN: No rashes CENTRAL NERVOUS SYSTEM: No focal deficits, tone is normal in all 4 extremities. EXTREMITIES: There is no peripheral edema. No clubbing, no cyanosis. Peripheral pulses are intact. - Labs CBC & Chem 7: 09/17/17 05:41 09/16/17 06:30 Labs: Abnormal Lab Results - Last 24 Hours (Table) 18 09/17/17 Range/Units 13:15 05:41 RBC 3.26 L (3.80-5.40) m/uL Hgb 10.3 L (11.4-16.0) gm/dL Hct 30.5 L (34.0-46.0) % RDW 18.1 H (11.5-15.5) % Lymphocytes # (Manual) 0.19 L (1.0-4.8) k/uL Crossmatch See Detail Assessment and Plan Assessment: Assessment Postop day #1, status post robotic-assisted thoracoscopic right upper lobectomy with mediastinal lymph node dissection History of stage IIIa non-small cell lung cancer, diagnosed by transbronchial needle aspiration, status post chemoradiation as neoadjuvant therapy. History of COPD History of hypothyroidism History of lower extremities edema History of oropharyngeal candidiasis Plan: The patient was seen and evaluated by Dr. Davila. She is doing well from the pulmonary standpoint. Chest x-ray reviewed. Right-sided chest tube remains in place. No air leak noted. She is working well the incentive spirometer. We will continue to follow and make further recommendations based on her clinical status. I, the cosigning physician, performed a history & physical examination of the patient. Lungs sounds are clear but diminished. Maintaining good O2 saturations in the 90s on room air. I discussed the assessment and plan of care with my nurse practitioner, Yesy Restrepo. I attest to the above note as dictated by her.
[2017-09-18] MEDS: HEPARIN SODIUM,PORCINE 5,000 UNIT/ML 1 ML VIAL SQ SCH ×4 (00:09→23:21)
[2017-09-18] MEDS: KETOROLAC 30 MG/ML 1 ML VIAL IVP SCH ×5 (00:09→23:20)
[2017-09-18] MEDS: LEVOTHYROXINE 75 MCG TAB PO SCH (06:22)
[2017-09-18] MEDS: PANTOPRAZOLE 40 MG TABLET PO SCH ×2 (06:22→17:19)
[2017-09-18 07:01] LABS: Anisocytosis Slight; HCT 32.4 % (34.0-46.0); HGB 10.7 gm/dL (11.4-16.0); MCH 31.4 pg (25.0-35.0); MCV 95.2 fL (80.0-100.0); Macrocytosis Slight; Mean Platelet Volume 6.4; Platelet Count 294 k/uL (150-450); RBC 3.41 m/uL (3.80-5.40); RDW 18.6 % (11.5-15.5); WBC 3.6 k/uL (3.8-10.6)
[2017-09-18 07:25] LABS: Anion Gap 8 mmol/L; Blood Urea Nitrogen 11 mg/dL (7-17); Calcium 9.3 mg/dL (8.4-10.2); Carbon Dioxide 28 mmol/L (22-30); Chloride 103 mmol/L (98-107); Glucose 96 mg/dL (74-99); Potassium 4.2 mmol/L (3.5-5.1); Sodium 139 mmol/L (137-145)
[2017-09-18 07:37] LABS: Basophils # (M) 0.07 k/uL (0-0.2); Eosinophils # (M) 0.07 k/uL (0-0.7); Lymphocytes # (M) 0.65 k/uL (1.0-4.8); Monocytes # (M) 0.18 k/uL (0-1.0); Neutrophils # (M) 2.63 k/uL (1.3-7.7); Neutrophils % (M) 73 %; Nucleated Red Blood Cells 0 /100 WBC (0-0); Total Cells Counted 100
--- NOTE | 2017-09-18 08:04 | P.PN ---
Subjective Progress Note Date: 09/18/17 Principal diagnosis: Primary pulmonary neoplasm right upper lobe. Previous medical history of asthma , COPD, GERD, hypothyroid, previous tobacco dependence and recent diagnosis of adenocarcinoma. POD #2 robotic assisted thoracoscopic right upper lobectomy with mediastinal lymph node dissection Patient's currently sitting up in bed in no acute distress. States pain at her chest tube site is better controlled. Chest tube was placed to waterseal yesterday. Has been up ambulating in the hallway without difficulty. Objective - Vital Signs Vital signs: Vital Signs Temp 98.4 F 09/18/17 04:05 Pulse 98 09/18/17 04:05 Resp 16 09/18/17 04:05 BP 103/65 09/18/17 04:05 Pulse Ox 95 09/18/17 04:05 Intake & Output 09/17/17 09/18/17 09/18/17 18:59 06:59 18:59 Intake Total 600 650 Output Total 620 780 Balance -20 -130 Weight 100.1 kg Intake: Oral 600 650 Output: Chest Tube Drainage 20 30 Chest Tube Right 20 30 Urine 600 750 Other: Voiding Method Toilet Bedside Commode - Constitutional General appearance: Present: cooperative, no acute distress, obese - Respiratory Details: Lungs sounds diminished bilaterally. Respirations even, nonlabored. Currently on room air with oxygen saturation 95%. Able to achieve 1000 mL on her incentive spirometry. Right pleural chest tube to water seal, 10 mL serosanguineous drainage overnight, 100 mL in the last 24 hours, no air leak present. - Cardiovascular Details: S1, S2 present. Regular rate and rhythm, sinus rhythm on telemetry. Palpable peripheral pulses bilaterally. No edema present. No calf pain or tenderness noted. SCDs present. - Gastrointestinal Gastrointestinal Comment(s): Abdomen soft, nontender, nondistended. Active bowel sounds 4 quadrants. Tolerating diet. - Genitourinary Genitourinary Comment(s): Continues to void clear, yellow urine. - Integumentary Integumentary Comment(s): Skin is warm with evidence perfusion. Right lateral chest incisions covered with dry intact Band-Aids. Right pleural chest tube site covered with dry intact dressing. - Neurologic Neurologic: Present: CNII-XII intact - Musculoskeletal Musculoskeletal: Present: gait normal, strength equal bilaterally - Psychiatric Psychiatric: Present: A&O x's 3, appropriate affect, intact judgment & insight - Allied health notes Allied health notes reviewed: nursing - Labs CBC & Chem 7: 18 06:18 18 06:18 Labs: Abnormal Lab Results - Last 24 Hours (Table) 09/13/17 09/18/17 Range/Units 13:15 06:18 WBC 3.6 L (3.8-10.6) k/uL RBC 3.41 L (3.80-5.40) m/uL Hgb 10.7 L (11.4-16.0) gm/dL Hct 32.4 L (34.0-46.0) % RDW 18.6 H (11.5-15.5) % Lymphocytes # (Manual) 0.65 L (1.0-4.8) k/uL Crossmatch See Detail - Imaging and Cardiology Chest x-ray: image reviewed Assessment and Plan (1) COPD (chronic obstructive pulmonary disease) Current Visit: Yes Status: Chronic Code(s): J44.9 - CHRONIC OBSTRUCTIVE PULMONARY DISEASE, UNSPECIFIED SNOMED Code(s): 96608774 (2) Hypothyroidism Current Visit: Yes Status: Chronic Code(s): E03.9 - HYPOTHYROIDISM, UNSPECIFIED SNOMED Code(s): 58396411 (3) Tobacco dependence in remission Current Visit: No Status: Resolved Code(s): F17.201 - NICOTINE DEPENDENCE, UNSPECIFIED, IN REMISSION SNOMED Code(s): 999923621 (4) Adenocarcinoma Current Visit: Yes Status: Chronic Code(s): C80.1 - MALIGNANT (PRIMARY) NEOPLASM, UNSPECIFIED SNOMED Code(s): 902568280 (5) Mass of upper lobe of right lung Current Visit: Yes Status: Chronic Code(s): R91.8 - OTHER NONSPECIFIC ABNORMAL FINDING OF LUNG FIELD SNOMED Code(s): 893211820 (6) Mediastinal lymphadenopathy Current Visit: Yes Status: Chronic Code(s): R59.0 - LOCALIZED ENLARGED LYMPH NODES SNOMED Code(s): 19867312 Plan: 1. Likely will discontinue right pleural chest tube today. Chest x-ray 2 hours later. 2. Encourage incentive spirometry use 10 times every hour. 3. Encourage continued smoking cessation. 4. Pain control with ordered medications. 5. Increase activity, ambulate in hallway. 6. Bronchodilators per pulmonology. 7. GI/DVT prophylaxis. 8. If repeat chest x-ray remains stable patient likely will be discharged to home later this afternoon. Time with Patient: Greater than 30
[2017-09-18] MEDS: FUROSEMIDE 20 MG TAB PO SCH ×2 (08:07→17:19)
[2017-09-18] MEDS: ACETYLCYSTEINE 800 MG/4 ML VIAL PO SCH (08:07)
[2017-09-18] MEDS: CYANOCOBALAMIN 500 MCG TAB PO SCH (08:07)
[2017-09-18] MEDS: THEOPHYLLINE 24 HOUR 400 MG CAP.ER.24H PO SCH (08:08)
[2017-09-18] MEDS: LORATADINE 10 MG TAB PO SCH (08:09)
[2017-09-18] MEDS: CHOLECALCIFEROL 1,000 UNIT TAB PO SCH (08:09)
[2017-09-18] MEDS: SYMBICORT 160-4.5 MCG INHALER INHALATION SCH ×2 (08:11→20:33)
[2017-09-18] MEDS: IPRATROPIUM-ALBUTEROL 3 ML NEB IH SCH ×5 (08:11→20:33)
[2017-09-18] MEDS: MAG HYDROX/AL HYDROX/SIMETH 30 ML CUP PO SCH (08:22)
[2017-09-18] MEDS: traMADol 50 MG TAB PO SCH ×4 (08:22→23:18)
--- NOTE | 2017-09-18 08:23 | XR ---
EXAMINATION: XR chest 2V DATE AND TIME: 09/18/2017 6:20 AM ORDERING PROVIDER: Shanda Branch CLINICAL INDICATION: post RUL lobectomy TECHNIQUE: PA and lateral COMPARISON: AP portable 09/17/2017 at 6:09 AM DESCRIPTION: Right chest tube. Left IJ catheter. Left IJ catheter superimposed over the mid SVC. EKG leads. Elevated right hemidiaphragm redemonstrated. There is a tiny visceral line synovitis the right apex consistent with tiny right pneumothorax. The p leural spaces are otherwise unremarkable. Lungs are unremarkable. Cardiomediastinal silhouette and bones and soft tissues are also unremarkable . IMPRESSION: 1. TINY RIGHT PNEUMOTHORAX. 2. THERE IS A 2 CM TRANSVERSE BY 1 CM CRANIOCAUDAL LUCENCY TO THE TOP OF THE RIGHT HEMIDIAPHRAGM. FIN DINGS COULD REPRESENT SUMMATION SHADOW, BUT TINY VOLUME OF PNEUMOPERITONEUM IS WITHIN THE DIFFERENTIA L; PNEUMOPERITONEUM CAN BE EXCLUDED WITH CT OR UPRIGHT CHEST RADIOGRAPHY. RT Cheryl calling the patient' s nurse now, in order to have RN read this report sonya.
--- NOTE | 2017-09-18 09:59 | P.PN ---
Subjective Progress Note Date: 09/18/17 Principal diagnosis: Lung cancer Progress note dated 09/18/2017 This is a 56-year-old female who is postop day #2, status post robotic-assisted thoracoscopic right upper lobectomy with mediastinal lymph node dissection for stage IIIa non-small cell lung cancer, status post previous a diagnosed by my partner with transbronchial needle aspiration, status post chemoradiation as neoadjuvant therapy. She also has a history of COPD and hypothyroidism. She is doing well and her chest to make him out today. Is currently on water seal. The patient seemed pretty comfortable. She does have some pain with deep breathing. Chest tube is still in place. It's on waterseal. The patient will get a chest x-ray soon. Chest tube may come down as per thoracic surgery. She might be appropriate to be discharged later. I did tell her today that she needs to follow-up with her lung doctor, Dr. Baldwin. Objective - Vital Signs Vital signs: Vital Signs Temp 98.4 F 09/18/17 04:05 Pulse 96 09/18/17 08:26 Resp 16 09/18/17 04:05 BP 103/65 09/18/17 04:05 Pulse Ox 95 09/18/17 04:05 Intake & Output 09/17/17 09/18/17 09/18/17 18:59 06:59 18:59 Intake Total 600 650 118 Output Total 620 780 Balance -20 -130 118 Weight 100.1 kg Intake: Oral 600 650 118 Output: Chest Tube Drainage 20 30 Chest Tube Right 20 30 Urine 600 750 Other: Voiding Method Toilet Bedside Commode - Exam No acute distress, oriented 3. Nasal O2 in place. HEENT examination is grossly unremarkable. Mucous membranes are moist. No oral lesions. Neck supple. Full range of motion. No adenopathy thyromegaly or neck vein distention. Cardiovascular examination reveals regular rhythm rate. S1-S2 normal. No S3 or S4. No discernible murmur noted. Lungs reveal diminished breath sounds on the right. Right-sided chest tube is noted. Left lung is clear. A few scattered rhonchi are noted on the right side. No wheezes or crackles.. Abdomen soft bowel sounds are heard. No masses or tenderness. Extremities are intact. No cyanosis clubbing or edema. Skin is without rash or lesion. Neurologic examination is brief but nonfocal. - Labs CBC & Chem 7: 09/18/17 06:18 09/18/17 06:18 Labs: Abnormal Lab Results - Last 24 Hours (Table) 09/13/17 09/18/17 Range/Units 13:15 06:18 WBC 3.6 L (3.8-10.6) k/uL RBC 3.41 L (3.80-5.40) m/uL Hgb 10.7 L (11.4-16.0) gm/dL Hct 32.4 L (34.0-46.0) % RDW 18.6 H (11.5-15.5) % Lymphocytes # (Manual) 0.65 L (1.0-4.8) k/uL Crossmatch See Detail Assessment and Plan Assessment: Assessment Postop day #2, status post robotic-assisted thoracoscopic right upper lobectomy with mediastinal lymph node dissection History of stage IIIa non-small cell lung cancer, diagnosed by transbronchial needle aspiration, status post chemoradiation as neoadjuvant therapy. History of COPD History of hypothyroidism History of lower extremities edema History of oropharyngeal candidiasis Plan: Plan dated 09/16/2017 The patient is doing well. We'll continue to follow. She has a very small air leak. She is in no distress. Minimal pain. I do recommend the use of the incentive spirometer every hour while awake with deep breathing coughing and clearing of secretions. Plan dated 09/18/2017 The patient seemed be doing relatively well. The patient's right-sided chest tube is on water seal. A chest x-ray will be ordered. The lung remained inflated, the chest tube will probably come out the patient could be discharged home later today with the subsequent chest x-ray. Recommendations and suggestions are forthcoming. She knows not to smoke. She should follow-up with her lung doctor. Additional recommendations and suggestions are forthcoming. Time with Patient: Less than 30
--- NOTE | 2017-09-18 11:57 | XR ---
EXAMINATION: XR chest 2V DATE AND TIME: 09/18/2017 11:47 AM ORDERING PROVIDER: Shanda Branch CLINICAL INDICATION: post chest tube removal TECHNIQUE: PA and lateral COMPARISON: 09/18/2017 at 6:13 AM DESCRIPTION: Since the prior study the right chest tube has been removed. There is no right or left-sided pneumothorax. There is no evidence of pneumoperitoneum. The lungs are clear. Left IJ catheter tip. IMPRESSION: POST CHEST TUBE REMOVAL.
[2017-09-19 00:24] VITALS: RESP 18
[2017-09-19] MEDS: LEVOTHYROXINE 75 MCG TAB PO SCH (06:02)
[2017-09-19] MEDS: PANTOPRAZOLE 40 MG TABLET PO SCH (06:02)
[2017-09-19] MEDS: KETOROLAC 30 MG/ML 1 ML VIAL IVP SCH (06:02)
--- NOTE | 2017-09-19 07:21 | XR ---
EXAMINATION TYPE: XR chest 2V DATE OF EXAM: 09/19/2017 COMPARISON: 09/18/2017 TECHNIQUE: PA and lateral views submitted. HISTORY: Postop FINDINGS: History fullness. Mediport catheter stable in position. Biapical volume loss on the right and elevati on right hemidiaphragm. No new consolidation or interstitial edema. IMPRESSION: 1. Postoperative changes. Right hilar fullness may been the basis of adenopathy or mass.
[2017-09-19] MEDS: HEPARIN SODIUM,PORCINE 5,000 UNIT/ML 1 ML VIAL SQ SCH (08:02)
[2017-09-19] MEDS: CYANOCOBALAMIN 500 MCG TAB PO SCH (08:02)
[2017-09-19] MEDS: THEOPHYLLINE 24 HOUR 400 MG CAP.ER.24H PO SCH (08:03)
[2017-09-19] MEDS: CHOLECALCIFEROL 1,000 UNIT TAB PO SCH (08:03)
[2017-09-19] MEDS: LORATADINE 10 MG TAB PO SCH (08:04)
[2017-09-19] MEDS: FUROSEMIDE 20 MG TAB PO SCH (08:04)
[2017-09-19] MEDS: traMADol 50 MG TAB PO SCH (08:08)
[2017-09-19] MEDS: MAG HYDROX/AL HYDROX/SIMETH 30 ML CUP PO SCH (08:08)
[2017-09-19] MEDS: IPRATROPIUM-ALBUTEROL 3 ML NEB IH SCH ×2 (08:14→11:35)
[2017-09-19] MEDS: SYMBICORT 160-4.5 MCG INHALER INHALATION SCH (08:14)
--- NOTE | 2017-09-19 08:32 | P.PN ---
Subjective Progress Note Date: 09/19/17 Principal diagnosis: Primary pulmonary neoplasm right upper lobe. Previous medical history of asthma , COPD, GERD, hypothyroid, previous tobacco dependence and recent diagnosis of adenocarcinoma. POD #3 robotic assisted thoracoscopic right upper lobectomy with mediastinal lymph node dissection Patient's currently ambulating in her room in no acute distress. States pain is well controlled on ordered medication. Had some slight shortness of breath with oxygen desaturation to 86% this morning on room air, was placed on 2 L nasal cannula. She has been ambulating in the hallway without difficulty. Right-sided chest tube was discontinued yesterday without incident. Repeat chest x-ray was stable. Objective - Vital Signs Vital signs: Vital Signs Temp 98.3 F 09/19/17 04:00 Pulse 94 09/19/17 08:14 Resp 18 09/19/17 06:14 BP 99/54 09/19/17 04:00 Pulse Ox 94 L 09/19/17 08:14 Intake & Output 09/18/17 09/19/17 09/19/17 18:59 06:59 18:59 Intake Total 538 Output Total 800 850 Balance -262 -850 Weight 100 kg Intake: Oral 538 Output: Urine 800 850 Other: Voiding Method Bedside Commode # Voids 2 - Constitutional General appearance: Present: cooperative, no acute distress, obese - Respiratory Details: Lungs sounds diminished bilaterally. Respirations even, nonlabored. Currently on 2 L nasal cannula with oxygen saturation 94%. Able to achieve 1250 mL on her incentive spirometry. - Cardiovascular Details: S1, S2 present. Regular rate and rhythm, sinus rhythm on telemetry. Palpable peripheral pulses bilaterally. No edema present. No calf pain or tenderness noted. SCDs present. - Gastrointestinal Gastrointestinal Comment(s): Abdomen soft, nontender, nondistended. Active bowel sounds 4 quadrants. Tolerating diet. - Genitourinary Genitourinary Comment(s): Continues to void clear, yellow urine. - Integumentary Integumentary Comment(s): Skin is warm with evidence of good perfusion. Right lateral chest incisions covered with dry intact Band-Aids. Right pleural chest tube site covered with dry intact dressing. - Neurologic Neurologic: Present: CNII-XII intact - Musculoskeletal Musculoskeletal: Present: gait normal, strength equal bilaterally - Psychiatric Psychiatric: Present: A&O x's 3, appropriate affect, intact judgment & insight - Allied health notes Allied health notes reviewed: nursing - Labs CBC & Chem 7: 09/18/17 06:18 18 06:18 - Imaging and Cardiology Chest x-ray: report reviewed, image reviewed Assessment and Plan (1) COPD (chronic obstructive pulmonary disease) Current Visit: Yes Status: Chronic Code(s): J44.9 - CHRONIC OBSTRUCTIVE PULMONARY DISEASE, UNSPECIFIED SNOMED Code(s): 42179205 (2) Hypothyroidism Current Visit: Yes Status: Chronic Code(s): E03.9 - HYPOTHYROIDISM, UNSPECIFIED SNOMED Code(s): 28626676 (3) Tobacco dependence in remission Current Visit: No Status: Resolved Code(s): F17.201 - NICOTINE DEPENDENCE, UNSPECIFIED, IN REMISSION SNOMED Code(s): 163761624 (4) Adenocarcinoma Current Visit: Yes Status: Chronic Code(s): C80.1 - MALIGNANT (PRIMARY) NEOPLASM, UNSPECIFIED SNOMED Code(s): 529956116 (5) Mass of upper lobe of right lung Current Visit: Yes Status: Chronic Code(s): R91.8 - OTHER NONSPECIFIC ABNORMAL FINDING OF LUNG FIELD SNOMED Code(s): 884918707 (6) Mediastinal lymphadenopathy Current Visit: Yes Status: Chronic Code(s): R59.0 - LOCALIZED ENLARGED LYMPH NODES SNOMED Code(s): 91701108 Plan: 1. Will do home oxygen evaluation this morning. 2. Encourage incentive spirometry use 10 times every hour. 3. Encourage continued smoking cessation. 4. Pain control with ordered medications. 5. Increase activity, ambulate in hallway. 6. Bronchodilators per pulmonology. 7. GI/DVT prophylaxis. 8. Will discharge to home today after home oxygen evaluation completed. All appointment made with Dr. Eid, patient will need to make appointment with Dr. Baldwin. Time with Patient: Greater than 30
[2017-09-19 08:36] VITALS: PULSE 95
--- NOTE | 2017-09-19 09:16 | P.DS ---
Providers Date of admission: 09/16/17 05:51 Expected date of discharge: 09/19/17 Attending physician: Romeo Eid Consults: 09/16/17 11:05 Consult Physician Routine Consulting Provider: Boris Davila Reason/Comments: RUL lobectomy Do you want consulting provider notified?: Yes Primary care physician: Stated None - Discharge Diagnosis(es) (1) COPD (chronic obstructive pulmonary disease) Current Visit: Yes Status: Chronic (2) Hypothyroidism Current Visit: Yes Status: Chronic (3) Tobacco dependence in remission Current Visit: No Status: Resolved (4) Adenocarcinoma Current Visit: Yes Status: Chronic (5) Mass of upper lobe of right lung Current Visit: Yes Status: Chronic (6) Mediastinal lymphadenopathy Current Visit: Yes Status: Chronic Hospital Course: FINAL DIAGNOSIS: 1. Primary pulmonary neoplasm right upper lobe 2. History of asthma 3. COPD 4. GERD 5. Hypothyroid 6. History of tobacco dependence 7. Recent diagnosis of adenocarcinoma PRINCIPAL PROCEDURE: 1. Robotic assisted thoracoscopic right upper lobectomy with mediastinal lymph node dissection HISTORY OF PRESENT ILLNESS: This is a 56-year-old female who follows with Dr. Lezama and Dr. Baldwin on an outpatient basis. She had been followed for some time for right apical scarring. She had a CT scan performed at [facility] in May 2017 demonstrating markedly increased size of a right apical mass, highly suspicious for carcinoma. There was no significant adenopathy present. Nodes of approximately 1 cm size were present in the distal right peritracheal region. She was referred to Dr. Eid for surgical recommendations. PET scan was ordered and completed June 05 demonstrating significant uptake in the tumor as well as in the right paratracheal nodes. The patient met with Dr. Eid and was was recommended to undergo EBUS which was completed and demonstrated presence of stage IIIa adenocarcinoma. She underwent induction chemoradiation with a good response including loss of uptake in the mediastinal nodes and shrinkage of the primary tumor. Subsequently she was recommended to undergo right upper lobectomy. Continued discussion was had with the patient regarding the surgery, all risks and benefits were explained in great detail, and she consented to proceed with surgery. HOSPITAL COURSE: The patient was brought to the hospital on 09/16/2017, taken to the preoperative area, prepared in the usual fashion, and subsequently taken to the operating room where Dr. Eid performed a robotic assisted thoracoscopic right upper lobectomy with mediastinal lymph node dissection. Upon completion of surgery the patient was extubated, taken to the recovery room where she was monitored hemodynamically, and eventually admitted to [address] [place] [address] for further monitoring and rehabilitation. Her oxygen was titrated down, she was ambulatory in the hallway, her pain was well controlled, she was able to tolerate oral intake, and her right pleural chest tube was ready for discontinuation on postop day #2. Follow-up chest x-ray was stable and the patient was ready to be discharged to home on postop day #3. She received written and verbal instruction regarding her medications, activity restrictions, signs and symptoms requiring physician notification, and follow- up appointments. COMPLICATIONS: The patient experienced no postoperative complications. Patient Condition at Discharge: Stable Plan - Discharge Summary Discharge Rx Participant: No New Discharge Prescriptions: New Acetaminophen Tab [Tylenol] 650 mg PO Q4HR PRN tab PRN Reason: Fever and/ or MODERATE Pain Continue Cholecalciferol [Vitamin D3] 4,000 unit PO QAM Levothyroxine Sodium [Levoxyl] 150 mcg PO QAM Furosemide [Lasix] 20 mg PO BID Budesonide/Formoterol Fumarate [Symbicort 160-4.5 Mcg Inhaler] 2 puff INHALATION RT-BID Albuterol Sulfate [Proair Hfa] 1 - 2 puff INHALATION RT-Q6H PRN PRN Reason: COPD Umeclidinium [place] [Incruse Ellipta] 1 puff INHALATION RT-DAILY Theophylline Anhydrous [Theophylline] 400 mg PO BID Omeprazole 20 mg PO TID-W/MEALS Ipratropium-Albuterol Nebulize [Duoneb 0.5 mg-3 mg/3 ml Soln] 3 ml INHALATION RT-BID Elderberry Fruit and Flower [Black Elderberry 575 mg Cap] 1 cap PO DAILY Cyanocobalamin (Vitamin B-12) [Vitamin B-12] 2,500 mcg SL DAILY Black Cohosh 40 mg PO DAILY Nystatin 100,000 unit PO BID PRN PRN Reason: FOR SYMPTOMS Famotidine [Pepcid AC] 10 mg PO HS Loratadine 10 mg PO QAM Cbd Oil 1 dose SL DAILY Collgen Vitamin D Biotin 1 tab PO DAILY Mag Hydrox/Al Hydrox/Simeth [Maalox] 30 ml PO QAM Changed traMADol HCL [Ultram] 50 mg PO TID PRN #14 tablet PRN Reason: Pain Discontinued [id number] 600 mg PO DAILY Discharge Medication List Albuterol Sulfate [Proair Hfa] 1 - 2 puff INHALATION RT-Q6H PRN 06/11/17 [ History] Budesonide/Formoterol Fumarate [Symbicort 160-4.5 Mcg Inhaler] 2 puff INHALATION RT-BID 06/11/17 [History] Cholecalciferol [Vitamin D3] 4,000 unit PO QAM 06/11/17 [History] Cyanocobalamin (Vitamin B-12) [Vitamin B-12] 2,500 mcg SL DAILY 06/11/17 [ History] Elderberry Fruit and Flower [Black Elderberry 575 mg Cap] 1 cap PO DAILY [History] Furosemide [Lasix] 20 mg PO BID 06/11/17 [History] Ipratropium-Albuterol Nebulize [Duoneb 0.5 mg-3 mg/3 ml Soln] 3 ml INHALATION RT -BID 06/11/17 [History] Levothyroxine Sodium [Levoxyl] 150 mcg PO QAM 06/11/17 [History] Omeprazole 20 mg PO TID-W/MEALS 06/11/17 [History] Theophylline Anhydrous [Theophylline] 400 mg PO BID 06/11/17 [History] Umeclidinium [place] [Incruse Ellipta] 1 puff INHALATION RT-DAILY 06/11/17 [ History] Black Cohosh 40 mg PO DAILY 07/05/17 [History] Nystatin 100,000 unit PO BID PRN 07/05/17 [History] Cbd Oil 1 dose SL DAILY 09/10/17 [History] Collgen Vitamin D Biotin 1 tab PO DAILY 09/10/17 [History] Famotidine [Pepcid AC] 10 mg PO HS 09/10/17 [History] Loratadine 10 mg PO QAM 09/10/17 [History] Mag Hydrox/Al Hydrox/Simeth [Maalox] 30 ml PO QAM 09/10/17 [History] Acetaminophen Tab [Tylenol] 650 mg PO Q4HR PRN tab 09/19/17 [Rx] traMADol HCL [Ultram] 50 mg PO TID PRN #14 tablet 09/19/17 [Rx] Follow up Appointment(s)/Referral(s): Romeo Eid MD [STAFF PHYSICIAN] - 09/30/17 12:30 pm Michael Lezama MD [REFERRING] - 1 Week Alley Baldwin MD [STAFF PHYSICIAN] - 1 Week Activity/Diet/Wound Care/Special Instructions: DISCHARGE INSTRUCTIONS: 1. No driving for 2 weeks, or until physician gives their ok. 2. The patient should sleep in their own bed, no medical bed needed. 3. No lifting, pushing, or pulling more than 10 pounds for 2 weeks. The physician will advise of any restriction changes. 4. Continue pain control per as needed orders. 5. Continue with incentive spirometry and splinting until otherwise directed by the physician. 6. Must shower daily using liquid antibacterial soap starting WednesdaySeptember 20. Please leave chest tube dressing in place until then, may reinforce if necessary. 7. Routine incision care. No powders, lotions, ointments on incisions. 8. Please call surgeon/OCEANOLOGY TEACHER for temp greater than 101 F or purulent drainage from incisions. 9. Narcotic medications were discussed with the patient, including the potential for misuse, addiction, and abuse. Opiod Start Talking form was reviewed with the patient. Discharge Disposition: HOME SELF-CARE
--- NOTE | 2017-09-19 09:38 | P.PN ---
Subjective Progress Note Date: 09/19/17 Principal diagnosis: Lung cancer Progress note dated 09/18/2017 This is a 56-year-old female who is postop day #2, status post robotic-assisted thoracoscopic right upper lobectomy with mediastinal lymph node dissection for stage IIIa non-small cell lung cancer, status post previous a diagnosed by my partner with transbronchial needle aspiration, status post chemoradiation as neoadjuvant therapy. She also has a history of COPD and hypothyroidism. She is doing well and her chest to make him out today. Is currently on water seal. The patient seemed pretty comfortable. She does have some pain with deep breathing. Chest tube is still in place. It's on waterseal. The patient will get a chest x-ray soon. Chest tube may come down as per thoracic surgery. She might be appropriate to be discharged later. I did tell her today that she needs to follow-up with her lung doctor, Dr. Baldwin. Progress note dated 09/19/2017 56-year-old female, postop day #3, status post robotic-assisted thoracoscopic right upper lobectomy with mediastinal lymph node dissection for stage IIIa non- small cell lung cancer. The patient is doing relatively well and may be discharged today. In addition to the above, she has a history of COPD and hypothyroidism. Chest tube is out. Chest x-ray stable. She'll follow-up with my partner who serves as her lung doctor. She otherwise is doing well and denies any shortness of breath chest tightness wheezing cough phlegm production hemoptysis fever chills chest pain chest pressure or palpitations. Objective - Vital Signs Vital signs: Vital Signs Temp 98.3 F 09/19/17 04:00 Pulse 95 09/19/17 08:33 Resp 18 09/19/17 06:14 BP 99/54 09/19/17 04:00 Pulse Ox 94 L 09/19/17 08:14 Intake & Output 09/18/17 09/19/17 09/19/17 18:59 06:59 18:59 Intake Total 538 Output Total 800 850 Balance -262 -850 Weight 100 kg Intake: Oral 538 Output: Urine 800 850 Other: Voiding Method Bedside Commode # Voids 2 - Exam No acute distress, oriented 3. No supplemental oxygen. HEENT examination is grossly unremarkable. Mucous membranes are moist. No oral lesions. Neck supple. Full range of motion. No adenopathy thyromegaly or neck vein distention. Cardiovascular examination reveals regular rhythm rate. S1-S2 normal. No S3 or S4. No discernible murmur noted. Lungs reveal diminished breath sounds on the right. Right sided chest tube has been removed. Left lung is clear. A few scattered rhonchi are noted on the right side. No wheezes or crackles.. Abdomen soft bowel sounds are heard. No masses or tenderness. Extremities are intact. No cyanosis clubbing or edema. Skin is without rash or lesion. Neurologic examination is brief but nonfocal. - Labs CBC & Chem 7: 09/18/17 06:18 09/18/17 06:18 Assessment and Plan Assessment: Assessment Postop day #3, status post robotic-assisted thoracoscopic right upper lobectomy with mediastinal lymph node dissection History of stage IIIa non-small cell lung cancer, diagnosed by transbronchial needle aspiration, status post chemoradiation as neoadjuvant therapy. History of COPD History of hypothyroidism History of lower extremities edema History of oropharyngeal candidiasis Plan: Plan dated 09/16/2017 The patient is doing well. We'll continue to follow. She has a very small air leak. She is in no distress. Minimal pain. I do recommend the use of the incentive spirometer every hour while awake with deep breathing coughing and clearing of secretions. Plan dated 09/18/2017 The patient seemed be doing relatively well. The patient's right-sided chest tube is on water seal. A chest x-ray will be ordered. The lung remained inflated, the chest tube will probably come out the patient could be discharged home later today with the subsequent chest x-ray. Recommendations and suggestions are forthcoming. She knows not to smoke. She should follow-up with her lung doctor. Additional recommendations and suggestions are forthcoming. Plan dated 09/19/2017 The patient is doing well. She may be discharged today. She'll follow-up with my partner. She feels well. Denies any chest complaints. No shortness of breath cough wheezing chest tightness phlegm production hemoptysis chest pain or pressure or palpitations. Time with Patient: Less than 30
[2017-09-19 10:04] VITALS: BP 113/59; TEMP 97.6
== END 2017-09-19 12:55 | disposition home or self-care (01) | DRG 165 ==
LOC: 2ORMAIN 05:51 → 6SEL 13:04
PROVIDERS: ADMIT Thoracic Surgery (Cardiothoracic Vascular Surgery); ATTEND Thoracic Surgery (Cardiothoracic Vascular Surgery)
PROC: 0BBC4ZZ Excision of Right Upper Lung Lobe, Percutaneous Endoscopic Approach (ICD-10-PCS; principal; 2017-09-16 07:30)
PROC: 07B74ZZ Excision of Thorax Lymphatic, Percutaneous Endoscopic Approach (ICD-10-PCS; principal; 2017-09-16 07:30)
PROC: 8E0W4CZ Robotic Assisted Procedure of Trunk Region, Percutaneous Endoscopic Approach (ICD-10-PCS; principal; 2017-09-16 07:30)
DX: C34.11 Malignant neoplasm of upper lobe, right bronchus or lung (principal); E03.9 Hypothyroidism, unspecified; F17.201 Nicotine dependence, unspecified, in remission; J44.9 Chronic obstructive pulmonary disease, unspecified; K21.9 Gastro-esophageal reflux disease without esophagitis; Z79.51 Long term (current) use of inhaled steroids; Z90.710 Acquired absence of both cervix and uterus; Z92.21 Personal history of antineoplastic chemotherapy; Z92.3 Personal history of irradiation; Z79.890 Hormone replacement therapy; Z79.899 Other long term (current) drug therapy
CPT/HCPCS: 71045; 71046; 80048; 80051; 85025; 86850; 86900; 86901; 86920; 88305; 88309; 88341; 88342; 94640; 94760

== ENCOUNTER → 2017-11-10 | Outpatient (CLI) | payer OTHER ==
--- NOTE | 2017-11-10 15:01 | XR ---
EXAMINATION TYPE: XR chest 2V DATE OF EXAM: 11/10/2017 COMPARISON: Prior chest dated 10/07/2017, 09/19/2017, PET/CT 08/28/2017 HISTORY: Lung cancer, cough, post upper lobectomy TECHNIQUE: Frontal and lateral views of the chest are obtained. FINDINGS: Findings are similar to prior exam. There is volume loss in the right hemithorax. Left-jose ed Port-A-Cath is stable with the distal tip overlying superior vena cava. No evident pneumothorax. C ardiac mediastinal silhouette, pulmonary vascularity and tootie are unchanged. There is a sclerotic foc us at the level of the left shoulder which is stable and represents soft tissue calcification IMPRESSION: No acute cardiopulmonary process.
== END | disposition home or self-care (01) ==
LOC: RADXRMAIN 12:29
PROVIDERS: ATTEND Internal Medicine Hematology & Oncology
DX: C34.11 Malignant neoplasm of upper lobe, right bronchus or lung (principal); J44.9 Chronic obstructive pulmonary disease, unspecified; E78.5 Hyperlipidemia, unspecified; R05 Cough
CPT/HCPCS: 71046

== ENCOUNTER → 2017-11-18 | Outpatient (CLI) | payer OTHER ==
[2017-11-18 08:49] LABS: Blood Urea Nitrogen 14 mg/dL (7-17)
--- NOTE | 2017-11-18 09:47 | CT ---
EXAMINATION TYPE: CT angio chest DATE OF EXAM: 11/18/2017 COMPARISON: None HISTORY: Lung CA CT DLP: 568 mGycm CONTRAST: CT chest with contrast and 3D reconstruction with MIP imaging is performed with IV Contrast, patient injected with 100mL mL of Isovue 370. Contrast-enhanced CT of the chest was performed through the course of the pulmonary arteries with kj g and mediastinal window settings submitted. 3D reconstruction with MIP imaging was also performed. PULMONARY ARTERIES: The pulmonary arteries and their major tributaries are patent. I do not see syed dence for sizable filling defect to suggest pulmonary embolic process. LUNGS: Chronic elevation right hemidiaphragm. Right-sided pleural effusion measuring 4.1 cm AP dimens ion. The lungs are clear and free of infiltrate. No evidence for atelectasis. No pulmonary nodule o r mass is detected. No pleural effusion. MEDIASTINUM: Thoracic aorta is of normal caliber,however, evaluation is limited given timing of the contrast bolus. If there is concern for thoracic aortic pathology consider AMIRA. Correlate clinicall y . The heart is not enlarged. No evidence for mediastinal mass. No mediastinal lymph nodes greater than 1cm. HILAR STRUCTURES: No evidence for mass. No hilar lymph nodes greater than 1 cm. UPPER ABDOMEN: No significant abnormality is seen. IMPRESSION: 1. No evidence for Pulmonary embolism at this time. 2. Moderate right-sided pleural effusion
== END | disposition home or self-care (01) ==
LOC: RADPROMAIN 07:34
PROVIDERS: ATTEND Internal Medicine Hematology & Oncology
DX: J90 Pleural effusion, not elsewhere classified (principal); C34.11 Malignant neoplasm of upper lobe, right bronchus or lung
CPT/HCPCS: 82565; 84520; 71275; J1642; Q9967

== ENCOUNTER → 2018-01-08 | Outpatient (CLI) | payer OTHER ==
--- NOTE | 2018-01-11 07:43 | PE ---
EXAMINATION TYPE: PET CT fusion skull to thigh DATE OF EXAM: 01/08/2018 COMPARISON: 11/18/2017 CT angio chest. PET/CT dated 08/28/2017 and 06/05/2017 HISTORY: Lung carcinoma treated with chemotherapy and radiation therapy last and December 2017 and J une 2017 respectively. Patient has also had a right upper lobectomy with mediastinal lymph node disse ction (10 nodes). TECHNIQUE: Following the intravenous administration of 13.4 mCi of F-18 FDG, whole body images are p erformed from the skull base to the midthigh. Images are reviewed on the computer in the coronal, ax ial, and sagittal planes. Reconstructed rotating images are created on independent workstation and r eviewed on the computer. A localization and attenuation correction CT is performed in conjunction w ith the PET scan. SCAN: Subsequent treatment strategy FINDINGS: SKULL BASE AND NECK: Focal hypermetabolic activity at the vocal cords and posterior to the vocal cor ds likely represents usage during the examination and misregistration. No focal mass on CT at this le natalio is seen. CHEST, MEDIASTINUM, AND HILAR REGION: There remains focal hypermetabolic activity along the superior sulcus in the right lung apex (maximum SUV of 6.3). The previously seen right apical mass blends with the pleural thickening measures approximately 2.5 cm in anterior posterior dimension on series 3 tirso ge 69. There is a new moderate right pleural effusion and associated compressive atelectasis as well as a ne w small pericardial effusion. Neither of these are hypermetabolic. Left-sided Mediport is appreciated. No new hypermetabolic mediastinal or supraclavicular adenopathy i s seen. ABDOMEN AND PELVIS: Solitary left hepatic lesion that is too small to accurately characterize and is similar to the prior 08/28/2017 and not hypermetabolic although this would be below the threshold of P ET CT. Left adrenal gland nodule has a Hounsfield unit compatible with a benign left adrenal gland li pid rich adenoma and is not hypermetabolic. Hypermetabolic activity in the pelvic bowel likely relates to excretion. No suspicious hypermetabolic activity. OSSEOUS STRUCTURES: No suspicious hypermetabolic activity. OTHER CT: Paranasal sinuses are well aerated. Mild degenerative changes of the spine, glenohumeral damion ints and femoral acetabular joints are seen. The unenhanced solid viscera are grossly unremarkable ot her than a small hiatal hernia, the above-mentioned benign left adrenal gland lesion, and indetermina nt above-mentioned hepatic lesion. Left-sided Mediport is present. Moderate background centrilobular emphysema is seen. Scattered areas of atelectasis are noted. IMPRESSION: Hypermetabolic focal activity in the right lung apex and superior sulcus status post righ t upper lobectomy suspicious for residual disease with new moderate right pleural effusion. No suspic ious findings to suggest metastasis in the chest, abdomen, or pelvis. No mediastinal or supraclavicul ar hypermetabolic adenopathy.
== END | disposition home or self-care (01) ==
LOC: RADPETMAIN 09:02
PROVIDERS: ATTEND Internal Medicine Hematology & Oncology
DX: C34.11 Malignant neoplasm of upper lobe, right bronchus or lung (principal); J90 Pleural effusion, not elsewhere classified; Z90.2 Acquired absence of lung [part of]
CPT/HCPCS: 78815; A9552

== ENCOUNTER 2018-01-12 09:56 | Day surgery (SDC) | payer OTHER ==
[~2018-01-12 09:56] MED LIST changes: -DEXAMETHASONE SOD PHOSPHATE 10 MG/ML 1 ML VIAL IV ONE; -MIDAZOLAM 2 MG/2 ML VIAL IV PRN; -ONDANSETRON 4 MG/2 ML VIAL IVP ONE; +SODIUM CHLORIDE 0.9% 500 ML in EMPTY BAG 1 BAG IV PRN
--- NOTE | 2018-01-12 10:25 | US ---
EXAMINATION TYPE: US chest DATE OF EXAM: 01/12/2018 COMPARISON: CT 2018 CLINICAL HISTORY: J90 PLUERAL EFFUSION, RIGHT SIDE. Right chest marking TECHNIQUE: Targeted ultrasound of the posterior lower right hemithorax EXAM MEASUREMENTS: Right Pleural Effusion pocket size: 11.8 cm Right skin surface to fluid distance: 2.9 cm Right side marked for possible thoracentesis outside the dept. Pulmonologists are able to review the images in the patient?s EMR. IMPRESSIONS: Right pleural effusion
[2018-01-12 10:38] VITALS: BP 116/73; RESP 16; TEMP 98.2
[2018-01-12 13:18] VITALS: PULSE 88
--- NOTE | 2018-01-12 13:39 | XR ---
EXAMINATION TYPE: XR chest 1V portable DATE OF EXAM: 01/12/2018 COMPARISON: 11/10/2017 HISTORY: Postthoracentesis TECHNIQUE: Single frontal view of the chest is obtained. FINDINGS: No sizable pneumothorax. Tiny residual pleural effusion suspected on the right. Heart size stable. Mediport catheter noted. Suggestion of arthropathy of the AC joints. Sclerotic density overl terra the left humerus stable. No overt failure. IMPRESSION: 1. No pneumothorax post thoracentesis.
--- NOTE | 2018-01-12 14:01 | PCN ---
PROCEDURE NOTE RIGHT-SIDED THORACENTESIS: INDICATION: Pleural effusion. A time-out was completed verifying correct patient, procedure, site, positioning , and implant (s) or special equipment if applicable. Patient was positioned, prepped and draped in usual sterile fashion. Lidocaine was used to anesthetize the area. A Thoracentesis catheter was introduced into the pleural space and fluid was removed. Blood loss was none. A chest x-ray was ordered to evaluate for pneumothorax. Total Fluid Removed: 600 ml Color of Fluid: Turbid, dark-yellowish pleural effusion. Fluid was sent for appropriate laboratory tests. Patient tolerated the procedure well and there were no bedside complication or bleeding. MMODL / IJN: [id number] /
[2018-01-12 17:14] LABS: Appearance,BF Hazy; Color,BF Yellow; Nucleated Cells, Body Fluid 511 /uL; RBC, Body Fluid 16 /uL
[2018-01-12 17:17] LABS: Mononuclear WBC,Body Fluid 86 %; Polynuclear WBC,Body Fluid 14 %; Total Cells Counted,Body Fluid 100
== END 2018-01-12 16:00 ==
LOC: PROCWHC3 09:56
PROVIDERS: ATTEND Internal Medicine Critical Care Medicine
DX: J90 Pleural effusion, not elsewhere classified (principal); C34.90 Malignant neoplasm of unspecified part of unspecified bronchus or lung; Z79.2 Long term (current) use of antibiotics; Z79.890 Hormone replacement therapy; Z79.51 Long term (current) use of inhaled steroids; Z79.52 Long term (current) use of systemic steroids; Z79.899 Other long term (current) drug therapy; Z87.891 Personal history of nicotine dependence; J44.9 Chronic obstructive pulmonary disease, unspecified
CPT/HCPCS: 89050; 87070; 87205; 87075; 82945; 83615; 84157; 71045; 76604; 32554; J2001

== ENCOUNTER → 2018-01-17 | Outpatient (CLI) | payer OTHER ==
--- NOTE | 2018-01-17 14:48 | NM ---
EXAMINATION TYPE: NM bone scan whole body DATE OF EXAM: 01/17/2018 COMPARISON: Nuclear medicine PET/CT 01/08/2018 HISTORY: Delayed whole-body scanning was performed following the injection of 25.2 mCi Tc 99m MDP. Images acq uired 3 hours post injection. FINDINGS: There is uptake at the seventh rib laterally on the right, this corresponds to an area previous fract ure CT with fracture healing. Soft tissue uptake is normal. There is a mild spinal curvature. Uptake in the maxilla and mandible likely due to periodontal disease. IMPRESSION: No convincing evidence of metastatic disease to the skeleton.
== END ==
LOC: RADNMMAIN 10:03
PROVIDERS: ATTEND Internal Medicine Critical Care Medicine
DX: C34.90 Malignant neoplasm of unspecified part of unspecified bronchus or lung (principal)
CPT/HCPCS: 78306; A9503

== ENCOUNTER 2018-02-26 19:00 | Emergency (ER) | payer OTHER ==
[2018-02-26 19:24] VITALS: RESP 18; TEMP 98.3
[2018-02-26] MEDS ORDERED: HYDROcodone/APAP 5-325MG 1 EACH TAB PO STA (19:42)
[2018-02-26 20:23] LABS: Basophils % (A) 0 %; Eosinophils # (A) 0.1 k/uL (0-0.7); Eosinophils % (A) 2 %; HCT 39.2 % (34.0-46.0); HGB 12.3 gm/dL (11.4-16.0); Hypochromasia Slight; Lymphocytes # (A) 0.8 k/uL (1.0-4.8); Lymphocytes % (A) 15 %; MCHC 31.3 g/dL (31.0-37.0); MCV 98.9 fL (80.0-100.0); Mean Platelet Volume 6.4; Monocytes # (A) 0.4 k/uL (0-1.0); Monocytes % (A) 6 %; Neutrophils % (A) 74 %; Platelet Count 347 k/uL (150-450); RBC 3.96 m/uL (3.80-5.40); RDW 15.4 % (11.5-15.5); WBC 5.5 k/uL (3.8-10.6)
[2018-02-26 20:35] LABS: ALT 27 U/L (9-52); AST 30 U/L (14-36); Alkaline Phosphatase 148 U/L (38-126); Anion Gap 8 mmol/L; Blood Urea Nitrogen 17 mg/dL (7-17); Calcium 10.1 mg/dL (8.4-10.2); Carbon Dioxide 25 mmol/L (22-30); Chloride 107 mmol/L (98-107); Glucose 107 mg/dL (74-99); Magnesium 1.8 mg/dL (1.6-2.3); Potassium 4.4 mmol/L (3.5-5.1); Sodium 140 mmol/L (137-145); Total Bilirubin 0.4 mg/dL (0.2-1.3); Total Protein 7.1 g/dL (6.3-8.2)
[2018-02-26 23:10] VITALS: BP 134/83; PULSE 79
--- NOTE | 2018-02-26 23:14 | ED ---
General Adult HPI - General Chief complaint: Dental/Oral Stated complaint: dental pain Source: patient, RN notes reviewed, old records reviewed Mode of arrival: ambulatory Limitations: no limitations - History of Present Illness Initial comments: 57-year-old female patient with past history including lung cancer, chemo, lobectomy presents to ED with tooth pain. Patient states that she has had pain in her lower right incisor for approximately 6 months. Patient has had multiple courses of antibiotics for this problem. Patient has not been able to locate dentist that'll take her insurance, was complicated by other treatment she was undergoing. Patient is currently on clindamycin prescribed her by her primary care physician. Patient had secondary complaint of substernal chest pain which lasted for approximately 10am until 4 PM, lasted approximately 6 hours. Patient describes sensation as a burning. Patient states that he was not made worse with exertion. Patient denies any radiation of the pain. Patient has a history of lymph node dissection later, states that she thinks the pain is related to that. Patient does not have any prior cardiac history. Patient denies other complaints. Systemic: Pt denies fatigue, myalgia, fever/chills, rash. Pt denies weakness, night sweats, weight loss. Neuro: Pt denies headache, visual disturbances, syncope or pre-syncope. HEENT: Pt denies ocular discharge or irritation, otalgia, rhinorrhea, pharyngitis or notable lymphadenopathy. Cardiopulmonary: Pt denies SOB, heart palpitations, dyspnea on exertion. Abdominal/GI: Pt denies abdominal pain, n/v/d. : Pt denies dysuria, burning w/ urination, frequency/urgency. Denies new onset urinary or bowel incontinence. MSK: Pt denies myalgia, loss of strength or function in extremities. - Related Data Home Medications Medication Instructions Recorded Confirmed Albuterol Sulfate [Proair Hfa] 1 - 2 puff INHALATION RT-Q6H PRN 06/11/17 Budesonide/Formoterol Fumarate 2 puff INHALATION RT-BID 06/11/17 01/12/18 [Symbicort 160-4.5 Mcg Inhaler] Cholecalciferol [Vitamin D3] 4,000 unit PO QAM 06/11/17 01/12/18 Cyanocobalamin (Vitamin B-12) 2,500 mcg SL DAILY 06/11/17 01/12/18 [Vitamin B-12] Elderberry Fruit and Flower [Black 1 cap PO DAILY 06/11/17 01/12/18 Elderberry 575 mg Cap] Furosemide [Lasix] 20 mg PO BID 06/11/17 01/12/18 Ipratropium-Albuterol Nebulize 3 ml INHALATION RT-BID 06/11/17 01/12/18 [Duoneb 0.5 mg-3 mg/3 ml Soln] Levothyroxine Sodium [Levoxyl] 150 mcg PO QAM 06/11/17 01/12/18 Omeprazole 20 mg PO TID-W/MEALS 06/11/17 01/12/18 Theophylline Anhydrous 400 mg PO BID 06/11/17 01/12/18 [Theophylline] Umeclidinium [place] [Incruse 1 puff INHALATION RT-DAILY 06/11/17 01/12/18 Ellipta] Black Cohosh 40 mg PO DAILY 07/05/17 01/12/18 Nystatin 100,000 unit PO BID PRN 07/05/17 01/12/18 Cbd Oil 1 dose SL DAILY 09/10/17 01/12/18 Collgen Vitamin D Biotin 1 tab PO DAILY 09/10/17 01/12/18 Famotidine [Pepcid AC] 10 mg PO HS 09/10/17 01/12/18 Loratadine 10 mg PO QAM 09/10/17 01/12/18 Mag Hydrox/Al Hydrox/Simeth 30 ml PO QAM 09/10/17 01/12/18 [Maalox] Previous Rx's Medication Instructions Recorded Acetaminophen Tab [Tylenol] 650 mg PO Q4HR PRN tab 09/19/17 traMADol HCL [Ultram] 50 mg PO TID PRN #14 tablet 09/19/17 Allergies Allergy/AdvReac Type Severity Reaction Status Date / Time No Known Allergies Allergy Verified 02/26/18 19:24 Review of Systems ROS Statement: Those systems with pertinent positive or pertinent negative responses have been documented in the HPI. ROS Other: All systems not noted in ROS Statement are negative. Past Medical History Past Medical History: Asthma, Cancer, COPD, GERD/Reflux, Thyroid Disorder Additional Past Medical History / Comment(s): RECENT DX WITH RIGHT LUNG CANCER History of Any Multi-Drug Resistant Organisms: None Reported Past Surgical History: Adenoidectomy, Section, Hysterectomy, Orthopedic Surgery, Tonsillectomy Additional Past Surgical History / Comment(s): RT SHOULDER SX. D & C Past Anesthesia/Blood Transfusion Reactions: No Reported Reaction Past Psychological History: No Psychological Hx Reported Smoking Status: Former smoker Past Alcohol Use History: Rare Past Drug Use History: None Reported - Past Family History Father Family Medical History: Cancer Additional Family Medical History / Comment(s): LUNG General Exam - General Exam Comments Initial Comments: Constitutional: NAD, AOX3, Pt has pleasant affect. HEENT: NC/AT, trachea midline, neck supple, no lymphadenopathy. Posterior pharynx non erythematous, without exudates. External ears appear normal, without discharge. Mucous membranes moist. Eyes PERRLA, EOM intact. There is no scleral icterus. No pallor noted. Localized edema noted at front lower right incisor. No fluctuance, no abscess, no drainage. No other areas of erythema Cardiopulmonary: RRR, no murmurs, rubs or gallops, no JVD noted. Lungs CTAB in anterior and posterior john. No peripheral edema. Abdominal exam: Abdomen soft and non-distended. Abdomen non-tender to palpation in all 4 quadrants. Bowel sounds active in LLQ. No hepatosplenomegaly. Neuro: CN II-XII grossly intact. Limitations: no limitations Course Vital Signs 02/26/18 02/26/18 02/26/18 19:20 21:27 23:09 Temperature 98.3 F Pulse Rate 81 76 79 Respiratory 18 18 18 Rate Blood Pressure 103/56 119/81 134/83 O2 Sat by Pulse 95 92 L 98 Oximetry Medical Decision Making - Medical Decision Making 57-year-old female patient presents to ED with dental pain which has been going on for approximately 6 months. Vital signs stable, afebrile She is currently on clindamycin for this, this is described by her primary care provider. Patient has additional complaint of chest pain earlier today. Physical exam displayed localized erythema around the right lower front incisor, no areas of fluctuance, no drainage, no abscess. Cardiopulmonary exam was within normal limits, regular rate and rhythm, lungs CTAB. Laboratory investigations conducted, CBC, CMP were within normal limits. Troponin was negative. EKG was NSR, no concerns for acute ischemia. Second troponin was negative 3 hours later. Patient to be discharged. Patient to continue clindamycin for tooth. Patient to use previously prescribed tramadol at home for pain. Patient to follow up with primary care provider in 1-2 days. Patient to follow with dentist in 1-2 days. Patient to return to ED if any new signs or symptoms develop including chest pain, shortness of breath, abdominal pain, nausea, diarrhea, fever chills, or any other new symptoms. Case discussed with Dr. Turner. Pt has ride, not driving home. - Lab Data Result diagrams: 02/26/18 20:06 02/26/18 20:06 Lab Results 02/26/18 02/26/18 02/26/18 Range/Units 20:06 20:06 20:06 WBC 5.5 (3.8-10.6) k/uL RBC 3.96 (3.80-5.40) m/uL Hgb 12.3 (11.4-16.0) gm/dL Hct 39.2 (34.0-46.0) % MCV 98.9 (80.0-100.0) fL MCH 31.0 (25.0-35.0) pg MCHC 31.3 (31.0-37.0) g/dL RDW 15.4 (11.5-15.5) % Plt Count 347 (150-450) k/uL Neutrophils % 74 % Lymphocytes % 15 % Monocytes % 6 % Eosinophils % 2 % Basophils % 0 % Neutrophils # 4.0 (1.3-7.7) k/uL Lymphocytes # 0.8 L (1.0-4.8) k/uL Monocytes # 0.4 (0-1.0) k/uL Eosinophils # 0.1 (0-0.7) k/uL Basophils # 0.0 (0-0.2) k/uL Hypochromasia Slight Sodium 140 (137-145) mmol/L Potassium 4.4 (3.5-5.1) mmol/L Chloride 107 (98-107) mmol/L Carbon Dioxide 25 (22-30) mmol/L Anion Gap 8 mmol/L BUN 17 (7-17) mg/dL Creatinine 0.70 (0.52-1.04) mg/dL Est GFR (CKD-EPI)AfAm >90 (>60 ml/min/1.73 sqM) Est GFR (CKD-EPI)NonAf >90 (>60 ml/min/1.73 sqM) Glucose 107 H (74-99) mg/dL Calcium 10.1 (8.4-10.2) mg/dL Magnesium 1.8 (1.6-2.3) mg/dL Total Bilirubin 0.4 (0.2-1.3) mg/dL AST 30 (14-36) U/L ALT 27 (9-52) U/L Alkaline Phosphatase 148 H (38-126) U/L Troponin I <0.012 (0.000-0.034) ng/mL Total Protein 7.1 (6.3-8.2) g/dL Albumin 4.0 (3.5-5.0) g/dL 02/26/18 Range/Units 23:05 WBC (3.8-10.6) k/uL RBC (3.80-5.40) m/uL Hgb (11.4-16.0) gm/dL Hct (34.0-46.0) % MCV (80.0-100.0) fL MCH (25.0-35.0) pg MCHC (31.0-37.0) g/dL RDW (11.5-15.5) % Plt Count (150-450) k/uL Neutrophils % % Lymphocytes % % Monocytes % % Eosinophils % % Basophils % % Neutrophils # (1.3-7.7) k/uL Lymphocytes # (1.0-4.8) k/uL Monocytes # (0-1.0) k/uL Eosinophils # (0-0.7) k/uL Basophils # (0-0.2) k/uL Hypochromasia Sodium (137-145) mmol/L Potassium (3.5-5.1) mmol/L Chloride (98-107) mmol/L Carbon Dioxide (22-30) mmol/L Anion Gap mmol/L BUN (7-17) mg/dL Creatinine (0.52-1.04) mg/dL Est GFR (CKD-EPI)AfAm (>60 ml/min/1.73 sqM) Est GFR (CKD-EPI)NonAf (>60 ml/min/1.73 sqM) Glucose (74-99) mg/dL Calcium (8.4-10.2) mg/dL Magnesium (1.6-2.3) mg/dL Total Bilirubin (0.2-1.3) mg/dL AST (14-36) U/L ALT (9-52) U/L Alkaline Phosphatase (38-126) U/L Troponin I <0.012 (0.000-0.034) ng/mL Total Protein (6.3-8.2) g/dL Albumin (3.5-5.0) g/dL - EKG Data -: EKG Interpreted by Me EKG Comments: Ventricular rate 77, WV interval 140, QRS 84, QT/QTC 376/425. Normal sinus rhythm, nonspecific ST abnormality, abnormal EKG. No signs for acute ischemia. Disposition Clinical Impression: Tooth pain Disposition: HOME SELF-CARE Condition: Good Instructions: Toothache (ED) Additional Instructions: Patient to adhere to previously discussed treatment plan and will take medication(s) as directed. Patient to follow up with PCP in 1-2 days. Patient to return to ED if symptoms do not improve. [facility] in [place], [place] Address: [address] [place], [place] [id number] Is patient prescribed a controlled substance at d/c from ED?: No Referrals: Michael Lezama MD [Primary Care Provider] - 1-2 days
[2018-02-26] MEDS ORDERED: MORPHINE SULFATE 4 MG/ML SYRINGE IV STA (23:53)
== END 2018-02-27 00:14 | disposition home or self-care (01) ==
LOC: EC 19:00
DX: K08.89 Other specified disorders of teeth and supporting structures (principal); R07.2 Precordial pain; J44.9 Chronic obstructive pulmonary disease, unspecified; K21.9 Gastro-esophageal reflux disease without esophagitis; E07.9 Disorder of thyroid, unspecified; Z79.51 Long term (current) use of inhaled steroids; Z79.899 Other long term (current) drug therapy; Z85.118 Personal history of other malignant neoplasm of bronchus and lung; Z92.21 Personal history of antineoplastic chemotherapy; Z87.891 Personal history of nicotine dependence
CPT/HCPCS: 36415; 93005; 80053; 83735; 84484; 85025; 99284; 96374; J2270

== ENCOUNTER → 2018-03-31 | Day surgery (SDC) | payer OTHER ==
[~2018-03-31] MED LIST changes: +ALPRAZolam 0.5 MG TAB PO STA; -SODIUM CHLORIDE 0.9% 500 ML in EMPTY BAG 1 BAG IV PRN
[2018-03-31 09:37] LABS: Mean Platelet Volume 6.5; Platelet Count 367 k/uL (150-450)
[2018-03-31 09:40] LABS: INR 0.9 (<1.2); Prothrombin Time 10.2 sec (9.0-12.0)
[2018-03-31] MEDS: HYDROmorphone 1 MG/ML 1 ML SYRINGE IVP STA ×2 (10:33→10:46)
--- NOTE | 2018-03-31 11:57 | XR ---
EXAMINATION TYPE: XR chest 1V portable DATE OF EXAM: 03/31/2018 COMPARISON: Prior chest x-ray 03/03/2018 HISTORY: Status post right upper lobe lung biopsy TECHNIQUE: Single frontal view of the chest is obtained. FINDINGS: Apical pleural thickening is again noted. No evident pneumothorax. Suspect there is some e rosion of the inferior margin of the second rib proximally on the right. This is developed in the int erval. Port-A-Cath is present in left pectoral region, there is catheter tip overlying the cavoatrial junction. Volume loss present in the right hemithorax. There is blunting of the right costophrenic a ngle. Healing right seventh rib fracture again noted. IMPRESSION: Postop changes. Interval erosion of the proximal aspect of the inferior margin of the se cond rib is suspected and could be confirmed with CT or possibly bone scan. No evident complication s tatus post lung biopsy.
[2018-03-31 12:39] VITALS: RESP 16
[2018-03-31 12:51] VITALS: PULSE 85
--- NOTE | 2018-03-31 13:29 | CT ---
EXAMINATION TYPE: CT guided FNA DATE OF EXAM: 03/31/2018 COMPARISON: Nuclear medicine PET/CT dated 01/08/2018 HISTORY: RUL FNA, abnormal PET/CT, apical mass right upper lobe CT DLP: 1540 mGycm Automated exposure control for dose reduction was used. Maximal barrier technique was utilized. The skin overlying a suitable path to the lesion at the apex of the right hemithorax was localized using CT and the overlying skin was prepped and draped. Lidoc noe used for local anesthesia. A skin jose made with a scalpel. Using CT guidance, access was gain ed to the lesion with a 22-gauge needle coaxially through a 19-gauge guide. Aspirated specimen submi tted to cytology. 2 passes were performed in all. Following the procedure no immediate complication s. The patient is discharged in stable condition. Hemostasis achieved. IMPRESSION: SUCCESSFUL CT GUIDED BIOPSY right upper chest. PATHOLOGY PENDING. THIS PROCEDURE WAS PERFORMED BY T CRISTIANA UNDERSIGNED.
[2018-03-31 13:30] VITALS: BP 111/66
--- NOTE | 2018-03-31 14:52 | XR ---
EXAMINATION TYPE: XR chest 1V portable DATE OF EXAM: 03/31/2018 COMPARISON: Prior chest same dated earlier time HISTORY: Status post right upper lobe lung biopsy TECHNIQUE: Single frontal view of the chest is obtained. FINDINGS: No interval change IMPRESSION: No evident complication status post lung biopsy.
== END ==
LOC: RADPROMAIN 09:04
PROVIDERS: ATTEND Radiology Radiation Oncology
DX: C34.11 Malignant neoplasm of upper lobe, right bronchus or lung (principal)
CPT/HCPCS: 88305; 88173; 85049; 85610; 88342; 88341; 96374; 36415; 71045; 77012; 10022; J1170; J1642

== ENCOUNTER → 2018-06-25 | Outpatient (CLI) | payer OTHER ==
--- NOTE | 2018-06-25 14:43 | PE ---
EXAMINATION TYPE: PET CT fusion skull to thigh DATE OF EXAM: 06/25/2018 COMPARISON: Most recent PET CT January 08, 2018 and older PET CTs. CTA chest November 18, 2017. HISTORY: Right-sided lung cancer diagnosed 2018 completed chemotherapy in 2018 and radiation treatmen t in April 2018. TECHNIQUE: Following the intravenous administration of 11.17 mCi of F-18 FDG, whole body images are performed from the skull base to the midthigh. Images are reviewed on the computer in the coronal, a xial, and sagittal planes. Reconstructed rotating images are created on independent workstation and reviewed on the computer. A noncontrast CT is performed in conjunction with the PET scan. SCAN: Subsequent Scan FINDINGS: SKULL BASE AND NECK: No new areas of suspicious hypermetabolic uptake are present. CHEST, MEDIASTINUM, AND HILAR REGION: No suspicious hypermetabolic uptake right apical region is iden tified but there is persistent neoplasm with destruction of right posterior second rib near articulat ion as well as right T2 transverse process axial image 54. No new areas of suspicious hypermetabolic uptake are seen. ABDOMEN AND PELVIS: No new areas of suspicious hypermetabolic uptake. OSSEOUS STRUCTURES: Unusual new focus of hypermetabolic type posterior aspect L4 spinous process imag e 159 with max SUV 3.63. OTHER CT: There is persistent small right pleural fluid collection which does not completely layer de pendently decrease in size from prior PET/CT. There is stable left internal jugular Mediport catheter. Small to borderline moderate pericardial eff usion is increased from prior. Mild to moderate emphysematous changes in lungs are redemonstrated. Low dense thickening to left adrenal gland system with lipid rich hyperplasia is redemonstrated. Stab le subcentimeter hepatic lesion axial image 128 is noted presumed benign. Scattered pelvic phleboliths are present. Uterus is surgically absent or markedly atrophic. There is facet arthropathy in the lower lumbar spine. There is multilevel spurring in the thoracolumb ar spine. IMPRESSION: Interval improvement in right-sided pleural effusion and hypermetabolic area right lung a pex but there is new destruction of the right posterior second rib and right T2 transverse process at site of neoplasm, hypermetabolic focus posterior aspect L4 spinous process of uncertain etiology, me tastatic focus though unusual in location and felt unlikely at this level would be difficult to entir joseph exclude.
== END | disposition home or self-care (01) ==
LOC: RADPETMAIN 08:05
PROVIDERS: ATTEND Radiology Radiation Oncology
DX: C34.11 Malignant neoplasm of upper lobe, right bronchus or lung (principal); C77.9 Secondary and unspecified malignant neoplasm of lymph node, unspecified; J90 Pleural effusion, not elsewhere classified; Z90.2 Acquired absence of lung [part of]
CPT/HCPCS: 78815; A9552

== ENCOUNTER → 2018-08-26 | Outpatient (CLI) | payer OTHER ==
--- NOTE | 2018-08-27 13:05 | XR ---
EXAMINATION TYPE: XR chest 2V DATE OF EXAM: 08/26/2018 COMPARISON: 03/31/2018 INDICATION: C 79.31Short of breath upper lobectomy lung cancer TECHNIQUE: Frontal and lateral views of the chest are obtained. FINDINGS: The heart size is normal. The pulmonary vasculature is normal. Is chronic elevation of the right diaphragm with some mild tenting may be some scarring. Port is pres ent on the left tip in superior vena cava region. No significant interval changes evident.. IMPRESSION: 1. No acute pulmonary process. 2. Post lobectomy changes.
== END | disposition home or self-care (01) ==
LOC: RADXRMAIN 16:51
PROVIDERS: ATTEND Radiology Radiation Oncology
DX: C34.11 Malignant neoplasm of upper lobe, right bronchus or lung (principal); C77.9 Secondary and unspecified malignant neoplasm of lymph node, unspecified; Z90.2 Acquired absence of lung [part of]
CPT/HCPCS: 71046

== ENCOUNTER → 2018-08-30 | Outpatient (CLI) | payer OTHER ==
--- NOTE | 2018-08-30 16:34 | CT ---
EXAMINATION TYPE: CT angio chest DATE OF EXAM: 08/30/2018 COMPARISON: CTA chest November 18, 2017. PET/CT June 25, 2018 HISTORY: SOB, currently being treated for lung ca. hx of right lobectomy. CT DLP: 435 mGycm. Automated Exposure Control for Dose Reduction was Utilized. CONTRAST: CTA scan of the thorax is performed with IV Contrast, patient injected with 64cc mL of Isovue 370, pu lmonary embolism protocol. MIP Images are created on CT scanner and reviewed. FINDINGS: LUNGS: Background mild to moderate underlying emphysematous change is redemonstrated. Persistent smal l right pleural effusion is felt stable lower slightly smaller from recent PET CT. Adjacent compressi ve atelectasis is present in the right lung base. No new suspicious consolidation. No new suspicious nodules or masses. Stable right hilar scarring and surgical change. Slightly Elevated right hemidiaph ragm redemonstrated. MEDIASTINUM: There is satisfactory enhancement of the pulmonary artery and its branches, there is no CT evidence for pulmonary embolism. There are no greater than 1 cm hilar or mediastinal lymph nodes. No cardiomegaly is seen. Small 2 borderline moderate size pericardial effusion axial image 101 fel t stable from recent PET CT. Stable left internal jugular Mediport catheter terminating in SVC. Enlar ged main pulmonary artery at 3.2 cm axial image 59, CT findings consistent with underlying pulmonary artery hypertension. OTHER: Liver remains heterogeneously hypodense. Stable subcentimeter hypodense lesion in liver axial image 135. Exaggerated thoracic kyphosis with mild to moderate multilevel spurring. Persistent destructive lesion right posterior second rib involving right transverse process axial tirso ge 15 is noted. IMPRESSION: 1. No CT evidence for acute pulmonary embolism. 2. Mild to moderate underlying emphysematous change with persistent small right pleural effusion and right lung posttreatment change. Small to borderline moderate-sized pericardial effusion. Persistent destructive lesion right lung apex involving posterior right second rib and transverse process. No si gnificant change from recent PET/CT.
== END | disposition home or self-care (01) ==
LOC: RADCTMAIN 15:44
PROVIDERS: ATTEND Internal Medicine Hematology & Oncology
DX: J43.9 Emphysema, unspecified (principal); J90 Pleural effusion, not elsewhere classified; I31.3 Pericardial effusion (noninflammatory); R91.8 Other nonspecific abnormal finding of lung field; C34.11 Malignant neoplasm of upper lobe, right bronchus or lung
CPT/HCPCS: 71275; Q9967

== ENCOUNTER → 2018-12-02 | Outpatient (CLI) | payer MEDICARE ==
--- NOTE | 2018-12-02 19:03 | MR ---
EXAMINATION TYPE: MR brain wo/w con DATE OF EXAM: 12/02/2018 COMPARISON: 06/25/2017 HISTORY: 58-year-old female Lung cancer / Facial droop TECHNIQUE: Multiplanar, multisequence images of the brain and brainstem were acquired before and aft er administration of 8.5 mL IV Gadavist. Diffusion weighted imaging is performed. FINDINGS: No evidence for acute infarction, hemorrhage, mass, mass effect, midline shift, herniation, effacemen t of basal cisterns, or extra-axial fluid collection. The ventricles and sulci are age-appropriate with mild generalized atrophy. Major intracranial flow voids are intact. T2/FLAIR weighted sequences show stable mild to moderate scattered burden of bright white matter murray ge in the subcortical and deep white matter regions. In area of encephalomalacia and gliosis along th e lateral right frontal cortex could represent an area of prior traumatic sequela and is also unchang ed. Midline structures demonstrate normal morphology. The craniocervical junction is normal. Post contrast images demonstrate no evidence of pathologic enhancement. Dural venous sinuses are pat ent. Leftward nasal septal deviation and mild mucosal thickening throughout the paranasal sinuses. Globes are intact. IMPRESSION: 1. Stable mild generalized atrophy and mild to moderate scattered burden of chronic small vessel isch emic disease. 2. No acute intracranial abnormality seen. 3. No enhancing intracranial lesions.
== END | disposition home or self-care (01) ==
LOC: RADMRIMAIN 10:23
PROVIDERS: ATTEND Internal Medicine Hematology & Oncology
DX: G31.89 Other specified degenerative diseases of nervous system (principal); I67.82 Cerebral ischemia; C34.11 Malignant neoplasm of upper lobe, right bronchus or lung
CPT/HCPCS: 70553; A9585

== ENCOUNTER → 2018-12-10 | Outpatient (CLI) | payer MEDICARE ==
--- NOTE | 2018-12-13 06:53 | PE ---
EXAMINATION TYPE: PET CT fusion skull to thigh DATE OF EXAM: 12/10/2018 COMPARISON: PET/CT dated 06/25/2018, 01/18/2018, and CT angiogram chest dated 08/30/2018 HISTORY: History of right lung cancer, surgically resected with chemotherapy in November 2017 and radia tion in April 2018 TECHNIQUE: Following the intravenous administration of 11.79 mCi of F-18 FDG, whole body images are performed from the skull base to the midthigh. Images are reviewed on the computer in the coronal, a xial, and sagittal planes. Reconstructed rotating images are created on independent workstation and reviewed on the computer. A localization and attenuation correction CT is performed in conjunction with the PET scan. SCAN: Subsequent treatment strategy FINDINGS: Mediastinal background: 2.16 Abdominal background: 2.92 SKULL BASE AND NECK: Hypermetabolic uptake is seen in the bilateral longus coli musculature and othe r musculature of the neck on the prior exam does not persist on was presumed to represent brown fat o n the prior examination. Vocal cord uptake is also present to be artifact and secondary to muscular u marylin the time of the examination. CHEST, MEDIASTINUM, AND HILAR REGION: Right apical scarring in the previous resection site is slightl y above mediastinal background with a maximum SUV of 2.31. ABDOMEN AND PELVIS: Liver uptake is diffusely heterogenous with more focal areas in segment 8 having a maximum SUV of 2.69 similar to background and for a having a maximum SUV of 2.83, slightly above ba ckground. No discrete noncontrast lesion is seen to correlate however MRI liver could ensure no metas tasis. Focal hypermetabolic uptake within the medial spleen is seen with a maximum SUV of 8.62, concerning f or neoplasm although alternatively this could represent misregistration from the adjacent renal sinus and excretion. Second questionable lesion has a maximum SUV of 4.39. OSSEOUS STRUCTURES: There is focal uptake within the spinous process of L4 having a maximum SUV of 2. 78, decreased from the prior. Destruction of the right T2 transverse process and right posterior seco nd rib are again noted on CT images however no focal hypermetabolic activity is seen at this location . This has a maximum SUV of 2.07. OTHER CT: OTHER CT: There is a left-sided MediPort present. Paranasal sinuses and mastoid air cells a re well aerated. Small pericardial effusion appears simple. There is a hypometabolic small right pleu ral effusion at the lung bases. Bandlike pleural parenchymal scarring is seen multifocally at the rig ht lung base. Moderate underlying emphysematous change and linear pleural parenchymal scarring at the left lung apex. Multiple probable left renal sinus cysts appears stable. Small amount of free fluid is seen within the pelvis, which may be physiologic. Moderate degree colonic fecal Restasis. There is a low-density left adrenal gland nodule within the unenhanced average Hounsfield unit of -3. This ma y represent a lipid rich adenoma or myelolipoma. Degenerative changes of the cervical spine and thora cic spine are also noted. Degenerative changes of scoliosis of the lumbar spine are noted. Prior gran ulomatous change. IMPRESSION: 1. Focal hypermetabolic lesion within the medial spleen and questionable second lesion versus more li lisa misregistration from the left renal sinus. Initial workup with targeted left upper quadrant ultr asound is recommended to evaluate for corresponding mass. Subsequent enhanced CT or MR may then be ne eded for further characterization. Diffusely heterogenous uptake of the liver could also be evaluated with three-phase abdominal CT or MRI. 2. Decrease in activity of the previously seen focus of the L4 spinous process. Possibly related to h ealing injury versus less likely metastasis. 3. Right apical scarring and very FDG avidity that is similar to mediastinal background is highly fav ored to represent posttreatment change with no new focal area of uptake are focal nodule. No new abno rmal contour. There remains similar destruction of the right T2 transverse process and posterior seco nd right rib without hypermetabolic activity.
== END | disposition home or self-care (01) ==
LOC: RADPETMAIN 09:36
PROVIDERS: ATTEND Internal Medicine Hematology & Oncology
DX: C34.11 Malignant neoplasm of upper lobe, right bronchus or lung (principal)
CPT/HCPCS: 78815; A9552

== ENCOUNTER → 2019-01-30 | Outpatient (CLI) | payer MEDICARE, OTHER ==
[2019-01-26 11:55] VITALS: BMI 29.3
[2019-01-30 11:44] VITALS: BP 113/61; PULSE 83; RESP 16
--- NOTE | 2019-01-31 19:31 | P.PAINCN ---
History of Present Illness - Reason for Consult Consult date: 01/30/19 - History of Present Illness This is an initial consultation of his throat is 58 years old female, with a chronic history of severe chest wall pain, started more than a year and half ago, patient diagnosed with lung cancer, stage IIIA, and she had chemo and radiation and later on she had right lobectomy, with lymph node dissection, she continued to have severe pain especially with any movement, the pain is constant, increased with deep breathing, and radiated towards the right shoulder blade area, she denies any skin she denies any discharge she denies any motor or sensory deficit, denies any fever or night sweats Past Medical History Past Medical History: Asthma, Cancer, COPD, GERD/Reflux, Hearing Disorder / Deafness, Musculoskeletal Disorder, Thyroid Disorder Additional Past Medical History / Comment(s): DX W/ RT Lung CA Stage 3 in May 2017 & did chemo & radiation & then surgery, then another round of chemo after surgery; current back pain, #2 rib broke during lung surg. Varicose veins. Tinnitus History of Any Multi-Drug Resistant Organisms: None Reported Past Surgical History: Adenoidectomy, Section, Hysterectomy, Orthopedic Surgery, Tonsillectomy Additional Past Surgical History / Comment(s): C-S x2, RT Shoulder SX, D & C's, port-a-cath in June 2017, Rt upper lobectomy & removal of lymph nodes in September 2017. Past Anesthesia/Blood Transfusion Reactions: No Reported Reaction Smoking Status: Former smoker - Past Family History Father Family Medical History: Cancer Additional Family Medical History / Comment(s): LUNG Brother(s) Family Medical History: Cancer Additional Family Medical History / Comment(s): Lung CA x2 brothers, Mesothelioma in 3rd brother Medications and Allergies Home Medications Medication Instructions Recorded Confirmed Type Albuterol Sulfate [Proair Hfa] 1 - 2 puff INHALATION RT-Q6H PRN 06/11/17 01/26/19 History Budesonide/Formoterol Fumarate 2 puff INHALATION RT-BID 06/11/17 01/26/19 History [Symbicort 160-4.5 Mcg Inhaler] Cholecalciferol [Vitamin D3 (25 4,000 unit PO QAM 06/11/17 01/26/19 History Mcg = 1000 Iu)] Cyanocobalamin (Vitamin B-12) 2,500 mcg SL DAILY 06/11/17 01/26/19 History [Vitamin B-12] Furosemide [Lasix] 20 mg PO BID 06/11/17 01/26/19 History Ipratropium-Albuterol Nebulize 3 ml INHALATION RT-BID PRN 06/11/17 01/26/19 History [Duoneb 0.5 mg-3 mg/3 ml Soln] Levothyroxine Sodium [Levoxyl] 150 mcg PO QAM 06/11/17 01/26/19 History Theophylline Anhydrous 400 mg PO BID 06/11/17 01/26/19 History [Theophylline] Umeclidinium [place] [Incruse 1 puff INHALATION RT-DAILY 06/11/17 01/26/19 History Ellipta] Black Cohosh 40 mg PO DAILY 07/05/17 01/26/19 History Nystatin 100,000 unit PO BID PRN 07/05/17 01/26/19 History Collgen Vitamin D Biotin 1 tab PO DAILY 09/10/17 01/26/19 History Mag Hydrox/Al Hydrox/Simeth 30 ml PO QAM PRN 09/10/17 01/26/19 History [Maalox] HYDROcodone/APAP 10-325MG [[place] 1 tab PO Q4-6H PRN 03/22/18 01/26/19 History 10-325] Multivit/Folic Acid/Vit K1 1 each PO DAILY 01/26/19 01/26/19 History [One-A-Day Women's 50 Plus Tab] Allergies Allergy/AdvReac Type Severity Reaction Status Date / Time No Known Allergies Allergy Verified 01/26/19 11:29 Physical Exam Vitals: Vital Signs Pulse Resp BP Pulse Ox 01/30/19 11:33 83 16 113/61 95 Physical Examinations : -Constitutiona : Cooperative , not in acute distress . -HEENT : nech : supple , no Lymphadenopathy , normal thyroid size . eyes : no ptosis , no icterus, no photophobia . ENT : normal of hearing , normal oropharynx , no Thrush . - Respiratory : Chest clear to auscultations Bilaterally , no wheezing , no Rhonchi . - Cardiovascula : regular rate and rhythem , S1 , S2 , no S3 , no S4. - Gastrointestina : abdomen soft no tenderness , bowel sounds , no organomegally . - Genitourinary : Defferred . - neurologic : Cranial nerve II to XII intact , no focal neurological deffecit . -psychatric : alert , oriented X 3 , appropriate affect , intact judgment and insight . -Lymphatic : no Lymphadenopathy . - musculoskeltal : Cervical Spine motor stregnth in the deltoid and biceps, normal right side , normal Left side motor stregnth biceps and the wrist extensors normal right side ,normal left side . motor stregnth in the triceps muscle . normal Right side , normal Left side Thoracic spine= tenderness over the right ribs from T2 to T4= Trigger point in the right shoulder blade area Lumber spine moter stegnth lower extremities ,thigh and legs 5/5 Right side , 5/5 Left side Assessment and Plan Assessment: Assessment and plan= Right intercostal neuralgia Myofascial pain syndrome right shoulder blade area Patient could benefit from right-sided intercostal nerve block T2, T3, T4 levels, and also at the same time we can go her right shoulder blade trigger point injection MAPS Reviwed and it was apropriate . Medication managements= patient will be given prescription for Lyrica 25 mg daily at bedtime increased gradually to 25 twice a day, in the future she will get prescription refills from her primary care, tissue had narcotic agreement with her primary and she is getting prescription refill for [place] 10/325 every 6 hours , Time with Patient: Greater than 30 PQRS Measure Charge Sheet Measure #130: Documentation of Current Meds in Medical Chart: Patient's medications documented in chart Measure #226: Tobacco Use: Screen & Cessation Intervention: Pt not a tobacco user Measure #111: Pneumonia Vaccination: Pneumococcal vaccine NOT administered or previously given Measure #47: Advance Care Plan: Advance care planning discussed & documented, pt chose/unable to give Measure #412: Opioid Treatment Agreement: No documentation of signed opioid treatment agreement Measure #408: Opioid Therapy Follow-up Evaluation: Patient had NO f/u eval minimum every 3 months during opioid therapy Measure #317: Preventitive Care & Scrn High Bld Press & F/U: Normal blood pressure, f/u not required Measure #128: Body Mass Index (BMI) Screening & Follow-up: BMI documented ABOVE normal parameters - f/u documented Measure #131: Pain Assessment & Follow-up: Pain positive & plan documented, Follow-up scheduled Measure #431: Unhealthy Alcohol Use Preventative Care & Scrn: Patient not identified as an unhealthy alcohol user PQRS Narrative: Smoking Status Former smoker Blood Pressure 113/61 Pain Intensity [Right Upper 5 Back] Scale Used Numeric (1 - 10) Home Medications: Ambulatory Orders Albuterol Sulfate [Proair Hfa] 1 - 2 puff INHALATION RT-Q6H PRN 06/11/17 Budesonide/Formoterol Fumarate [Symbicort 160-4.5 Mcg Inhaler] 2 puff INHALATION RT-BID 06/11/17 Cholecalciferol [Vitamin D3 (25 Mcg = 1000 Iu)] 4,000 unit PO QAM 06/11/17 Cyanocobalamin (Vitamin B-12) [Vitamin B-12] 2,500 mcg SL DAILY 06/11/17 Furosemide [Lasix] 20 mg PO BID 06/11/17 Ipratropium-Albuterol Nebulize [Duoneb 0.5 mg-3 mg/3 ml Soln] 3 ml INHALATION RT-BID PRN 06/11/17 Levothyroxine Sodium [Levoxyl] 150 mcg PO QAM 06/11/17 Theophylline Anhydrous [Theophylline] 400 mg PO BID 06/11/17 Umeclidinium [place] [Incruse Ellipta] 1 puff INHALATION RT-DAILY 06/11/17 Black Coh[place] 40 mg PO DAILY 07/05/17 Nystatin 100,000 unit PO BID PRN 07/05/17 Collgen Vitamin D Biotin 1 tab PO DAILY 09/10/17 Mag Hydrox/Al Hydrox/Simeth [Maalox] 30 ml PO QAM PRN 09/10/17 HYDROcodone/APAP 10-325MG [[place] 10-325] 1 tab PO Q4-6H PRN 03/22/18 Multivit/Folic Acid/Vit K1 [One-A-Day Women's 50 Plus Tab] 1 each PO DAILY 01/26/19
== END | disposition home or self-care (01) ==
LOC: PNWHC3 11:13
PROVIDERS: ATTEND Specialist
DX: G89.29 Other chronic pain (principal); R07.89 Other chest pain; M79.18 Myalgia, other site; G58.0 Intercostal neuropathy; C77.0 Secondary and unspecified malignant neoplasm of lymph nodes of head, face and neck; C34.11 Malignant neoplasm of upper lobe, right bronchus or lung; Z87.891 Personal history of nicotine dependence; Z90.2 Acquired absence of lung [part of]; Z51.0 Encounter for antineoplastic radiation therapy; Z79.899 Other long term (current) drug therapy
CPT/HCPCS: 99211

== ENCOUNTER → 2019-01-30 | Outpatient (CLI) | payer MEDICARE, OTHER | END | disposition home or self-care (01) | LOC: RADMRIMAIN 14:35 | PROVIDERS: ATTEND Internal Medicine Hematology & Oncology | DX: Z53.9 Procedure and treatment not carried out, unspecified reason (principal) ==

== ENCOUNTER → 2019-01-31 | Outpatient (CLI) | payer MEDICARE, OTHER ==
--- NOTE | 2019-01-31 11:40 | MR ---
EXAMINATION TYPE: MR brain wo/w con DATE OF EXAM: 01/31/2019 COMPARISON: 12/02/2018 HISTORY: Loss of balance, memory loss, history of lung cancer TECHNIQUE: Multiplanar, multisequence images of the brain and brainstem is performed without and with IV contras t, utilizing 7.5 mL intravenous Gadavist . FINDINGS: Diffusion weighted images demonstrate no evidence of a recent infarct or other diffusion ab normality. There is no extra-axial fluid collection or significant white matter signal abnormality. The ventricular system and cisternal spaces are normal in size and appearance. The brain volume is age appropriate. Midline structures demonstrate normal morphology. The craniocervical junction appears within normal limits. There is extensive vasogenic edema involving the left parietal lobe with a 3.1 x 3 x 3 cm enhancing m ass with heterogeneous signal characteristics and rim enhancement. Finding compatible with metastases . There does appear to be subfalcine herniation and midline shift from left to right of approximately 3 mm. Significant mass effect upon the posterior margin of the left lateral ventricle. Temporal horn s are similar in size. There is a smaller area of abnormal signal in the right frontal white matter but no enhancement may b een the basis of an area of remote ischemia. This is stable from the prior exam. Occasional additiona l foci of abnormal signal are scattered throughout the white matter bilaterally. Findings most typica l remote microvascular ischemia. The dural venous sinuses appear patent. Changes of mild chronic sinu sitis. T2/FLAIR weighted sequences show stable mild to moderate scattered burden of bright white matter murray ge in the subcortical and deep white matter regions. In area of encephalomalacia and gliosis along th e lateral right frontal cortex could represent an area of prior traumatic sequela and is also unchang ed. IMPRESSION: 1. There is a large area of vasogenic edema involving the left parietal lobe greater posteriorly seco ndary to a rim-enhancing mass measuring 3.1 x 3 x 3 cm compatible with a metastatic deposit. Internal heterogeneous signal may represent a hemorrhagic component. Report called by telephone to referring clinician. 2. There is midline shift from left to right with subfalcine herniation measuring approximately 3 mm . Severe mass effect upon the posterior margin of the left lateral ventricle noted.
== END | disposition home or self-care (01) ==
LOC: RADMRIMAIN 09:41
PROVIDERS: ATTEND Internal Medicine Hematology & Oncology
DX: C34.11 Malignant neoplasm of upper lobe, right bronchus or lung (principal); G93.6 Cerebral edema; G93.89 Other specified disorders of brain
CPT/HCPCS: 70553; A9585

== ENCOUNTER 2019-03-14 06:12 | Day surgery (SDC) | payer MEDICARE, OTHER ==
[2019-03-13 10:35] VITALS: BMI 29.3
[2019-03-14] MEDS ORDERED: LACTATED RINGERS 1,000 ML IV SCH (06:23)
[2019-03-14 06:37] VITALS: TEMP 97.8
[2019-03-14 06:46] LABS: Glucose,Whole Blood 164 mg/dL (75-99)
--- NOTE | 2019-03-14 08:06 | P.PCN ---
Date of Procedure: 03/14/19 Procedure(s) Performed: PROCEDURE: right sided T1 ,T2 , T3 Intercostal nerve block under fluoroscopic guidance.( Fluoroscopy images available in the radiology department ) Right side shoulder blade area trigger point injection ( total of 3 trigger point injected in the right side shoulder blade area ) PREOP DIAGNOSIS:1- Intercostal neuralgia. 2-myofascial pain syndrome right side shoulder blade area. 3-lung cancer POSTOP DIAGNOSIS: Same as preoperative diagnoses ANESTHESIA: Moderate sedation with Versed 2 mg, and Fentanyl 100 g EBL: Minimal COMPLICATION: None. IV FLUIDS: 100 mL of normal saline. PROCEDURE INDICATION: Chronic right-sided thoracic pain secondary to intercostals neuralgia, myofascial pain syndrome, and she is here for the procedure PROCEDURE DESCRIPTION: The patient was seen and identified in the preoperative area. Risks, benefits, complications, and alternatives were discussed with the patient. The patient agreed to proceed with the procedure and signed the consent. IV was started. Vital signs were stable throug hout the procedure. The patient was taken to the procedure room and was placed in the prone position on the procedure table. The thoracic area was prepped and draped in the usual sterile fashion. Critical pause was taken. Using anteroposterior fluoroscopy, the T1 , rib on the right/left side was identified. An area approximately 2 inches lateral to the vertebral midline was localized under fluoroscopy. Subsequently, a 25-gauge, 3-1/2-inch needle was advanced under fluoroscopy towards the inferior aspect of the rib. After making contact with the rib, the needle was walked off and carefully slipped inferiorly off the rib. After negative aspiration and with the absence of paresthesias, and then Isovue-200 , 1 mL injected after negative aspiration sure no intravascular spread 1,5 ml of Ropivacaine 0.5 % mixed with 10 mg of Depo-Medrol. The needle was subsequently removed , and the same procedure was repeated at the levels of T2 , T3 , Then after that the trigger point injection done and sterile technique, 3 trigger point identified in the preoperative holding area and the right shoulder blade, suprascapular and infrascapular, each of the trigger point injected with ropivacaine 0.5% 2 mL injected at each trigger point using 25-gauge needle , injection done after negative aspiration, and there was no paresthesia during the injection At the end of the procedure, skin was cleansed, and bandages were applied. Patient denied any shortness of breath after the procedure. Lungs auscultation showed clear and equal air entry bilaterally after the procedure. The patient tolerated the procedure well without complications. Patient was observed in the recovery area until he/she met all discharge criteria. CXR ordered and recurrent to rule out pneumothorax. Note= the Pallo is to do Right intercostal nerve block at T2, T3, T4, the painful area marked Intra-Op and it was found that it is compatibility with right-sided T1, T2, T3 levels , this reason the procedure was changed to the leveles mentioned above
[2019-03-14 08:11] VITALS: RESP 18
[2019-03-14 08:17] VITALS: BP 125/74; PULSE 58
--- NOTE | 2019-03-14 08:33 | XR ---
EXAMINATION TYPE: XR chest 1V portable DATE OF EXAM: 03/14/2019 COMPARISON: Prior chest x-ray 08/26/2018 HISTORY: Pneumothorax, intercostal nerve block, abnormal chest x-ray TECHNIQUE: Single frontal view of the chest is obtained. FINDINGS: There is no significant interval change. Tenting of the right hemidiaphragm is noted, ther e is apical increased density in the right hemithorax. Left jugular central venous catheter shows the distal tip overlying the region of the cavoatrial junction. No evident pneumothorax or pleural effus ion. Heart size is stable. IMPRESSION: No evident complication status post intercostal nerve block.
--- NOTE | 2019-03-14 10:07 | FL ---
Fluoroscopy HISTORY: Pain, intercostal injection 7 seconds fluoroscopy time supplied to the referring clinician. 2 intraoperative C-arm images docume nt the procedure. See dictated report from anesthesia.
== END 2019-03-14 08:42 | disposition home or self-care (01) ==
LOC: ORPAIN 06:12
PROVIDERS: ATTEND Specialist
DX: G58.0 Intercostal neuropathy (principal); M79.18 Myalgia, other site; C34.90 Malignant neoplasm of unspecified part of unspecified bronchus or lung; M54.89 Other dorsalgia; R07.89 Other chest pain; J44.9 Chronic obstructive pulmonary disease, unspecified; Z79.52 Long term (current) use of systemic steroids
CPT/HCPCS: 71045; 20553; 64421; J2250; J1030; J3010; Q9966; 64420; 99152

== ENCOUNTER → 2019-03-25 | Outpatient (CLI) | payer MEDICARE, OTHER ==
--- NOTE | 2019-03-28 10:05 | PE ---
Nuclear medicine PET/CT HISTORY: Lung carcinoma, subsequent She received 10.9 mCi F-18 FDG intravenously in delayed scanning was performed from the skull base to the mid thighs. Localization and attenuation correction CT scan was performed. Correlation to prior nuclear medicine PET/CT 12/10/2018 Neck and chest: No evident cervical, supraclavicular, mediastinal, axillary, or hilar adenopathy. Inc idental note made of patient's brain metastasis on the left. Muscular activity is likely physiologic along the shoulder regions. No evident lung mass. Minimal pleural fluid noted posterior in the right chest is suspected, small pericardial effusion. No suspicious hypermetabolic uptake. ABDOMEN: Liver shows low attenuation likely due to hepatic steatosis. There is fatty sparing present. Hypodense focus within the left lobe of the liver is no longer seen. Left adrenal gland is somewhat prominent, no associated hypermetabolic uptake. Spleen, pancreas, gallbladder, kidneys are within nor mal limits. There is no retroperitoneal adenopathy. There is some free fluid in the pelvis. No pelvic adenopathy. Uterus and adnexal structures are not seen. Osseous structures within normal limits. Port-A-Cath present in left pectoral region via a left jugul ar approach shows the distal tip in the superior vena cava IMPRESSION: Metastatic disease to brain. Indeterminate fluid attenuation posterior right lung base ma y represent chronic pleural reaction rather than small amount of pleural fluid and has decreased in s ize compared to prior exam. Small amount of fluid in the pelvis, small pericardial effusion. Postop c hanges.
== END | disposition home or self-care (01) ==
LOC: RADPETMAIN 10:12
PROVIDERS: ATTEND Internal Medicine Hematology & Oncology
DX: C79.31 Secondary malignant neoplasm of brain (principal); C34.11 Malignant neoplasm of upper lobe, right bronchus or lung; I31.3 Pericardial effusion (noninflammatory); Z98.890 Other specified postprocedural states
CPT/HCPCS: 78815; A9552

== ENCOUNTER → 2019-03-30 | Outpatient (CLI) | payer MEDICARE, OTHER ==
--- NOTE | 2019-03-31 03:51 | MR ---
EXAMINATION TYPE: MR brain wo/w con DATE OF EXAM: 03/30/2019 COMPARISON: 01/31/2019 HISTORY: Lung ca with brain mets CONTRAST: Standard multiplanar, multisequence MRI departmental protocol utilizing 7.5 mL intravenous Gadavist g adolinium contrast. There is a rounded 2.7 cm irregular ring-enhancing mass in the left wrist are parietal lobe garcia-whit e matter junction. There is mild surrounding edema. Edema measures up to 1.3 cm. There is no midline shift. There is no sign of intracranial hemorrhage. The cerebellum is intact. Brainstem is intact. Th ere is no evidence of cortical infarct. On the FLAIR images there are multiple scattered foci of incr eased signal at the garcia-white matter junction of both cerebral hemispheres. The largest is in the ri ght posterior frontal lobe and measures 1.5 cm. Total number is approximately 25 and most of the lesi ons that measure up to 7 mm. No other focus of pathologic enhancement is seen other than the left par ietal lesion. There is normal contrast opacification of the venous sinuses. The sella turcica appears normal. Brain stem is intact. IMPRESSION: Large ring-enhancing mass left posterior parietal lobe consistent with metastatic disease. Lesion is slightly smaller than previous exam and the edema around the lesion is significantly improved. This i s suggestive of a favorable treatment response. No evidence of any new focus of metastatic disease. Extensive white matter signal changes consistent with chronic small vessel ischemia. This appears wor se than previous MR scan. There are new and increasing white matter foci on the FLAIR images.
== END | disposition home or self-care (01) ==
LOC: RADMRIMAIN 15:32
PROVIDERS: ATTEND Radiology Radiation Oncology
DX: C79.31 Secondary malignant neoplasm of brain (principal); C77.0 Secondary and unspecified malignant neoplasm of lymph nodes of head, face and neck; C34.11 Malignant neoplasm of upper lobe, right bronchus or lung; Z90.2 Acquired absence of lung [part of]
CPT/HCPCS: 70553; A9585